=== PATIENT | female | born 1990 | race Caucasian/White ===

== ENCOUNTER 2023-08-19 09:57 | Outpatient (CLI) | payer OTHER, SELFPAY ==
[2023-08-19 13:38] LABS: Basophils Absolute Auto 0.1 K/mm3 (0.0-0.1); Basophils Percent Auto 1.1 % (0.2-1.2); Eosinophils Absolute Auto 0.1 K/mm3 (0-0.3); Eosinophils Percent Auto 2.1 % (0-4.4); Hematocrit 42.2 % (42.0-52.0); Hemoglobin 13.6 g/dL (14.0-18.0); Immature Granulocyte Absolute 0.01 K/mm3 (0.00-0.031); Immature Granulocyte Percent A 0.2 % (0-0.5); Lymphocytes Absolute Auto 1.22 K/mm3 (0.9-3.2); Lymphocytes Percent Auto 27.9 % (18.3-44.2); Mean Corpuscular HGB Conc 32.2 g/dl (32-36); Mean Corpuscular Hemoglobin 27.9 pg (26-34); Mean Corpuscular Volume 86.7 fl (80-100); Mean Platelet Volume 9.7 fl (7.4-10.4); Monocytes Absolute Auto 0.4 K/mm3 (0.1-0.6); Monocytes Percent Auto 8.4 % (2.6-8.5); Neutrophils Absolute Auto 2.6 K/mm3 (1.3-6.7); Neutrophils Percent Auto 60.3 % (45.5-73.1); Platelet Count Result 204 k/mm3 (150-375); Red Blood Count 4.87 M/mm3 (4.2-6.2); Red Cell Distribution Width 14.8 % (11.5-14.5); White Blood Count 4.4 K/mm3 (4.5-10.0)
[2023-08-19 17:18] LABS: Alanine Aminotransferase 14 U/L (6-50); Alkaline Phosphatase 56 U/L (38-126); Anion Gap 7 mmol/L (8-16); Aspartate Amino Transferase 36 U/L (17-59); Bilirubin,Total 0.7 mg/dL (0.2-1.3); Blood Urea Nitrogen 13 mg/dL (7-20); Calcium 9.2 mg/dL (8.4-10.2); Carbon Dioxide 26 mmol/L (22-30); Chloride 107 mmol/L (96-107); Cholesterol 145 mg/dL (0-200); Estimated Glomerular Filt Rate > 60; Glucose 86 mg/dL (65-110); HDL Direct 74 mg/dL; Potassium 4.2 mmol/L (3.4-5.0); Sodium 140 mmol/L (137-145); Triglycerides 75 mg/dL (<150)
[2023-08-19 17:27] LABS: LDL Cholesterol Direct 42 mg/dL
[2023-08-23 23:59] LABS: Vitamin D 1,25 (OH)2 Total 28 pg/mL (18-72); Vitamin D2 1,25 (OH)2 <8 pg/mL; Vitamin D3 1,25 (OH)2 28 pg/mL
== END 2023-08-19 09:58 | disposition home or self-care (01) ==
LOC: ANHGOSHLAB 09:59
PROVIDERS: PCP Family Medicine; Visit Provider Nurse Practitioner Family
DX: I63.9 Cerebral infarction, unspecified (principal); Z00.00 Encounter for general adult medical examination without abnormal findings; E55.9 Vitamin D deficiency, unspecified
CPT/HCPCS: 36415; 80053; 80061; 82652; 84443; 85025

== ENCOUNTER 2023-09-18 10:26 | Emergency (ER) | payer OTHER, SELFPAY ==
--- NOTE | 2023-09-18 10:31 | ED.SKABFB ---
HPI - Skin/Abscess/Foreign Bdy General Chief complaint: Skin/Abscess/Foreign Body Stated complaint: INFECTED TOENAIL Time Seen by Provider: 09/18/23 10:31 Source: patient Mode of arrival: ambulatory Limitations: no limitations History of Present Illness HPI narrative: Yuli is a 33-year-old female patient presenting to the clinic today with complaints of possible infected right great toenail. She reports history of stroke that is affected her right side. States that she has had a ingrown toenail infection few weeks ago was given doxycycline and this to cure the infection however the infection has restarted over the last few days. She reports pain to palpation over the right medial toe with redness and swelling noted Related Data Home Medications Medication Instructions Recorded Confirmed baclofen 5 mg tablet 5 mg PO TID 08/17/23 09/18/23 diazepam 10 mg tablet 10 mg PO QHS 08/17/23 08/17/23 folic acid 1 mg tablet 1 mg PO DAILY 08/17/23 09/18/23 hydroxychloroquine 100 mg tablet 100 mg PO BID 08/17/23 09/18/23 labetalol 100 mg tablet 50 mg PO Q12H 08/17/23 09/18/23 lacosamide 50 mg tablet 50 mg PO Q12H 08/17/23 08/17/23 Allergies Allergy/AdvReac Type Severity Reaction Status Date / Time No Known Allergies Allergy Verified 09/18/23 10:37 Review of Systems Review of Systems: Pertinent positives per HPI. Patient denies any fever, chills, rash, headache, visual changes, dizziness, cough, runny nose, sore throat, shortness of breath, chest pain, palpitations, nausea, vomiting, diarrhea, constipation, abdominal pain, or any urinary issues. [facility] Past Medical History Medical History History of stroke Status post stereotactic radiosurgery (~06/2023) Surgical History Surgical History H/O atrial septal defect repair (~1991) H/O carpal tunnel repair (~2010) x2 H/O hernia repair (~2020) S/P coil embolization of cerebral aneurysm (~2022) Family History Family History Father Hypertension Social History Social History Social History: Caffeine-Coffee Smoking status: Never smoker Alcohol intake: never Substance use: never Substance use type: does not use Lack of Transportation: No Lack of Food: Never True Current Housing: I Have Housing Concerned About Future Housing: No Difficulty Paying Gas/Electric Bills: No Difficulty Paying for Meds: No Currently Unemployed: No Education: Bachelor's Degree Difficulty w/ Childcare or Family Care: No Living arrangements: with family Gender identity (if verbalized by the patient): Female Agree to blood products: Yes Comments At the time of my signature, I reviewed and agree with the nursing past medical, surgical, social, and family history. There is no relevant family history pertinent to the patient complaint. Exam Narrative: General: Well-developed, well nourished, in no apparent distress Head: Normocephalic, atraumatic. Cardio: Regular rate and rhythm, s1 and s2 normal, no murmur appreciated. Resp: Clear to auscultation bilaterally, no rhonchi, rales, wheezing or rubs. Integumentary: [place], warm, and dry, intact without lesion, no rash, redness and swelling noted to the distal toe with medial right great toenail infected/ingrown toenail Course Course Emergency Course: Portions of this record may have been created with voice recognition software. Level of Care: Express Care Visit Vital Signs Vital signs: Vital signs reviewed Procedures Other Procedure Procedure 1: Other Procedure: Verbal consent obtained for right infected ingrown toenail removal. Area was cleansed with wound wash. A 27 gauge needle was then used to inject a mL of lidocaine without epi into the proximal medial and l
[2023-09-18 10:41] VITALS: BP 133/82; PULSE 75; RESP 16; TEMP 37; O2SAT 100
== END 2023-09-18 11:36 | disposition home or self-care (01) ==
PROVIDERS: Emergency Provider Nurse Practitioner Family; PCP Nurse Practitioner Family
DX: L60.0 Ingrowing nail (principal); Z86.73 Personal history of transient ischemic attack (TIA), and cerebral infarction without residual deficits
CPT/HCPCS: 11765; 99213; G0463

== ENCOUNTER 2023-11-18 10:00 | Outpatient (RCR) | payer OTHER, SELFPAY ==
--- NOTE | 2023-09-02 10:21 | PTOPEVAL1 ---
Assessment and note entered by Ryan Jones Evaluation Information Assessment Status Evaluation Diagnosis cerebral infarct Onset 02/12/23 Subjective Information Pt. reports that she suffered a stroke on 02/12/23. She was in the ICU for about 24 days. From there she was admitted to IP rehab for 3 weeks. Pt. then attended OP for about 1 week and then was switched to due to scheduling difficulties. Pt. reports that she does have hx of RA, which did cause some difficulty prior to her infarct. 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 She reports that she has returned to home schooling, but has some family help currently . She reports that she has 3 children that she does have to care for. She reports her current limitation is pain radiating down the right l.e. She states that she has no dorsiflexion in her right ankle. She has been doing estim daily to stimulate dorsiflexion. She reports that she does notice active dorsiflexion with use of the estim unit. she states that she is having complication from her toes beginning to curl in on the right foot. She is currently using an AFO to support the right ankle. She states that pain in her toes limits her ability to walk for long distances daily. Pt. reports that she attempts to complete normal household activities, but things take a longer duration since the cerebral infarct. She notices occasional loss of balance, but denies any falls. She reports that she has noticed that she fatigues easily and after a full day of activity she can feel that she is in a fog. Pt. reports that she is using a treadmill at home daily, using a recumbent bike, using a Gilles unit 2x/day to stimulate dorsiflexion for 30 minutes, stretching of the right leg and general strengthening activities at home. She reports that her goal for PT is to be able to improve her walking and have less pain with walking. Reported Pain Level Pain Score 0: Self Report Assessment PT Clinical Summary Pt. is a 33 year old female who enters the clinic post cerebral infarct affecting the right l.e. She currently presents with impaired flexibility, impaired right l.e. strength, impaired gait mechanics and impaired balance. Continued skilled PT is indicated in order to improve these areas to allow for improved effic
--- NOTE | 2023-09-02 10:28 | OPREHPOC ---
Outpatient Therapy Plan of Care This is a Multidisciplinary Plan of Care that may contain components documented by all disciplines (PT, OT, and ST.) PT Problem 1 PT Problem #1 Knowledge Deficit PT Goal 1 Goal Independent with a HEP addressing l.e. strength and mobility Target Visit 2 PT Problem 2 PT Problem #2 Impaired Balance PT Goal 1 Goal Improve her Tinetti score to 24 or greater indicating low fall risk. Target Visit 10 PT Problem 3 PT Problem #3 Impaired Gait PT Goal 1 Goal Pt. will demonstrates lesser degree of hip circumduction on the right during swing phase without verbal cuing for distance of 500'. Target Visit 10 PT Problem 4 PT Problem #4 Impaired Strength PT Goal 1 Goal Pt. will present with improved hip abduction, flexion and extension strength at the right hip to 4/5 or greater in all groups. Target Visit 10 PT Problem 5 PT Problem #5 Impaired Range of Motion PT Goal 1 Goal Pt. will present with 5 degrees passive right ankle dorsiflexion to assist with standing posture and normalizing gait mechanics. Target Visit 10
--- NOTE | 2023-09-02 11:26 | OTOPEVAL1 ---
Assessment and note entered by Kash Leyva, NISREEN/Cecy, CHT Evaluation Information 09/02/23 Diagnosis CVA Onset 02/12/23 Subjective Information Patient experienced an AVM rupture 11 days after she gave . She is s/p 3 weeks of acute care and 3 weeks of inpatient rehab. She presents today with her , Jose. They live at home with their 3 daughters. Currently family comes over Wednesday-Wednesday. She has progressed to being independent with ADLs, laundry, and cleaning. She reports difficulties cognitively with sequencing and processing to be able to do 2 tasks at once ( laundry and holding a conversation). She is not back to driving and reports not really feeling ready to drive. She is right handed and right side affected. Assessment OT Clinical Summary Patient referred to OT with dx of CVA with residual right sided deficits. She reports difficulties with right sided strength and functional coordination impacting ADL performance and childcare. Skilled OT indicated to maximize functional strength and coordination through therapeutic exercises and activities and HEP instruction and progression. Plan of Care Interventions Therapeutic Exercise,Neuro Re-education, Therapeutic Activities OT Services Indicated Yes Treatment Frequency and 2x/week for 8 visits Duration These treatments will address the objective and functional deficits as defined above. The patient will be advanced safely and appropriately in order for the patient to progress towards his/her prior level of function. Additional exercises will be introduced and as well as a comprehensive home exercise program upon discharge, if needed, ?to ensure carryover of functional gains achieved in the clinic. This treatment plan has been reviewed and agreement upon by the patient.
--- NOTE | 2023-09-02 11:27 | OPREHPOC ---
Outpatient Therapy Plan of Care This is a Multidisciplinary Plan of Care that may contain components documented by all disciplines (PT, OT, and ST.) PT Problem 1 PT Problem #1 Knowledge Deficit PT Goal 1 Goal Independent with a HEP addressing l.e. strength and mobility Target Visit 2 PT Problem 2 PT Problem #2 Impaired Balance PT Goal 1 Goal Improve her Tinetti score to 24 or greater indicating low fall risk. Target Visit 10 PT Problem 3 PT Problem #3 Impaired Gait PT Goal 1 Goal Pt. will demonstrates lesser degree of hip circumduction on the right during swing phase without verbal cuing for distance of 500'. Target Visit 10 PT Problem 4 PT Problem #4 Impaired Strength PT Goal 1 Goal Pt. will present with improved hip abduction, flexion and extension strength at the right hip to 4/5 or greater in all groups. Target Visit 10 PT Problem 5 PT Problem #5 Impaired Range of Motion PT Goal 1 Goal Pt. will present with 5 degrees passive right ankle dorsiflexion to assist with standing posture and normalizing gait mechanics. Target Visit 10 OT Problem 1 OT Problem #1 Knowledge Deficit OT Goal 1 Goal 1. Patient and/or spouse to be independent with instructed materials. Target Visit 8 OT Problem 2 OT Problem #2 Impaired Coordination OT Goal 1 Goal 1. Patient to be able to complete the 9-hole peg test with the right hand in 20 seconds or less. Target Visit 8 OT Problem 3 OT Problem #3 Impaired Strength OT Goal 1 Goal 1. Improve right shoulder and elbow gross strength to 5/5. 2. Improve right guest service team leader strength to 75 lbs. Target Visit 8
--- NOTE | 2023-09-02 15:12 | STOPEVAL1 ---
Assessment and note entered by Theresa Luna EDGE BANDING OFF BEARER Evaluation Information Assessment Status Evaluation Assessment Status Evaluation Assessment Status Evaluation Reported Pain Level Pain Score 0: Self Report Pain Score 0: Self Report Pain Score 0: Self Report Assessment ST Clinical Summary COGNITIVE EVALUATION This patient had AVM rupture, hemorraghic stroke, brain bleed on February [id number] days after the of her third child. She was admitted to [facility], then had inpatient rehab, and then in-home therapy until July while living in [place]; additionally she had radiation therapy to cauterize the last bit of bleeding in June,. The family has since returned to [place] and lives close to this rehabilitation location, 's work, and grandparents to assist with caregiving. 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 Her reports that patient has an ankle issue which affects her walking and indicates a disability but their greater concern is patient's cognitive issues. Patient reports she can start her day fresh with her family, but after dealing with the children, she feels as if she has been taking drugs all day, disconnected with (her) own thoughts and brain. Patient reports issues with losing train of thought such as forgetting why she entered a room. Additionally, they report that when cooking, she has to complete one task at a time such as retrieving a bowl, then retrieving the butter, then retrieving the eggs, but if someone were to say to her: Get one stick of butter and two eggs, she would be overwhelmed and not be able to retrieve both items in the correct amount. The patient was given portions of the Ross Information Processing Assessment (RIPA) and tasks from the Scales of Cognitive Ability for Traumatic Brain Injury (SCATBI). She performed as follows: RIPA I. Immediate Yared
--- NOTE | 2023-09-07 09:05 | OPREHPOC ---
Outpatient Therapy Plan of Care This is a Multidisciplinary Plan of Care that may contain components documented by all disciplines (PT, OT, and ST.) PT Problem 1 PT Problem #1 Knowledge Deficit PT Goal 1 Goal Independent with a HEP addressing l.e. strength and mobility Target Visit 2 PT Problem 2 PT Problem #2 Impaired Balance PT Goal 1 Goal Improve her Tinetti score to 24 or greater indicating low fall risk. Target Visit 10 PT Problem 3 PT Problem #3 Impaired Gait PT Goal 1 Goal Pt. will demonstrates lesser degree of hip circumduction on the right during swing phase without verbal cuing for distance of 500'. Target Visit 10 PT Problem 4 PT Problem #4 Impaired Strength PT Goal 1 Goal Pt. will present with improved hip abduction, flexion and extension strength at the right hip to 4/5 or greater in all groups. Target Visit 10 PT Problem 5 PT Problem #5 Impaired Range of Motion PT Goal 1 Goal Pt. will present with 5 degrees passive right ankle dorsiflexion to assist with standing posture and normalizing gait mechanics. Target Visit 10 OT Problem 1 OT Problem #1 Knowledge Deficit OT Goal 1 Goal 1. Patient and/or spouse to be independent with instructed materials. Target Visit 8 OT Problem 2 OT Problem #2 Impaired Coordination OT Goal 1 Goal 1. Patient to be able to complete the 9-hole peg test with the right hand in 20 seconds or less. Target Visit 8 OT Problem 3 OT Problem #3 Impaired Strength OT Goal 1 Goal 1. Improve right shoulder and elbow gross strength to 5/5. 2. Improve right sewing machinist strength to 75 [address] Target [address] Problem #[address] Goal 1 Goal 1. Patient will voice and demonstrate good understanding of ding memory strategies and strategies to improve focus, recall, and attention to detail in order to facilitate improved ability to complete activities of daily living.
--- NOTE | 2023-09-30 12:10 | OTOPDC ---
Assessment and note entered by Kash Leyva, NISREEN/Cecy, CHT OT Discharge Summary 09/30/23 Diagnosis CVA Onset 02/12/23 Subjective Information Patient reporting noticing improvements in shoulder flexibility and ROM. She states she continues to have difficulties with body awareness and proprioception. She has been consciously making herself use her right hand for more tasks despite it being easier for her left hand to do, like carry a cup of coffee. She reports that it takes a lot more effort to focus on using the right hand and that it's not quite automated yet . Assessment OT Clinical Summary Patient referred to OT with dx of CVA with residual right sided deficits. She presents today for re-assessment after 8 OT sessions. Today she is demonstrating improved flexibility of the right shoulder. Gross strength remained relatively unchanged, but is WFL. Fine motor coordination, as measured by the 9-hole peg test, remained unchanged, but is also WFL. Had a long discussion with the patient regarding neuroplasticity. Recommending she continue to challenge herself by using her right UE for tasks. We also discussed trying yoga to improve the mind-body connection. She verbalizes excellent understanding. Discharging today with patient independent with HEP. Plan of Care OT Services Indicated No
--- NOTE | 2023-10-01 14:43 | STOPPROG ---
Assessment and note entered by Theresa Luna, FACE MAN Assessment ST Clinical Summary TREATMENT SUMMARY AND PROGRESS NOTE The patient has been seen for a Cognitive Evaluation and then 8 treatment sessions focuding on attention to detail, recall, and memory including sequencing. Therapy tasks this past period have included recall of moderate length paragraph recall presented aloud, deductive reasoning stories with clues, functional math for time, and divergent naming. Patient reports that she has appreciated having dedicated time to address cognitive issues. She does not feel that she had been improving in a previous therapy episode when she was given homework to address independently and that was not challenging where when she attends the sessions here at this outpatient center, every day presents new challenges that she feels have benefitted her as they cause her to be both aware of her deficits and how to address improving her impairments. Two portions of the Scales of Cognitive Ability for Traumatic Brain Injury were re-administered to assess progress: Recall of 5 words in order after 30 second delay : 100% accuracy (initially had recalled all five words with two incorrectly ordered). Recall of 11 pieces of information from an informative description of a recipe: 05/05 ( initially 8/11 items). New item this month: Verbal Deductive Reasoning: Patient presented a brief story with two clues aloud; patient was asked to write down information she felt helpful in order to come to a conclusion : 0% accuracy, independently. This puzzle offered two first names, two cars, and two last name, along with two clues that should have facilitated patient associating the correct information with each woman's first name. Even with patient's written notes, which were all correct, she was unable to make the associations in order to complete the deductive reasoning puzzle. Patient also has been given functional math tasks for time and although she generally deduces the correct time, she also requires excessive time to
--- NOTE | 2023-10-01 15:07 | STOPPROG ---
Assessment and note entered by Theresa Luna, PLASTIC DESIGN APPLIER Assessment ST Clinical Summary TREATMENT SUMMARY AND PROGRESS NOTE The patient has been seen for a Cognitive Evaluation and then 8 treatment sessions focuding on attention to detail, recall, and memory including sequencing. Therapy tasks this past period have included recall of moderate length paragraph recall presented aloud, deductive reasoning stories with clues, functional math for time, and divergent naming. Patient reports that she has appreciated having dedicated time to address cognitive issues. She does not feel that she had been improving in a previous therapy episode when she was given homework to address independently and that was not challenging where when she attends the sessions here at this outpatient center, every day presents new challenges that she feels have benefitted her as they cause her to be both aware of her deficits and how to address improving her impairments. Two portions of the Scales of Cognitive Ability for Traumatic Brain Injury were re-administered to asses progress: Recall of 5 words in order after 30 second delay : 100% accuracy (initially had recalled all five words with two incorrectly ordered). Recall of 11 pieces of information from an informative description of a recipe: 05/05 ( initially 8/11 items). New item this month: Verbal Deductive Reasoning: Patient presented a brief story with two clues aloud; patient was asked to write down information she felt helpful in order to come to a conclusion : 0% accuracy, independently. This puzzle offered two first names, two cars, and two last name, along with two clues that should have facilitated patient associating the correct information with each woman's first name. Even with patient's written notes, which were all correct, she was unable to make the associations in order to complete the deductive reasoning puzzle. Patient also has been given functional math tasks for time and although she generally deduces the correct time, she also requires excessive time to
--- NOTE | 2023-10-07 13:00 | PTOPPROG ---
Assessment and note entered by Ryan Jones Evaluation Information Assessment Status Progress Diagnosis cerebral infarct Onset 02/12/23 Subjective Information Pt. reports that she notices that she is walking better. she reports that she still feels that she has to give a constant conscious effort to improve her gait mechanics. She continues to also note tightness through the right l.e. and notices difficulty with the toes curling in standing. Pt . states that she would like to continue to improve mobility around the ankle, as well as improve her ability to walk. Assessment PT Clinical Summary Pt. has attended a total of 11 treatment sessions. In this date she has demonstrated improvements in regards to gait and balance. Despite improvements deficits remain that hinder the patients performance of IADL's. She demonstrates ability to further improve gait mechanics, specifically focusing on the right l.e. stance phase mechanics. Recommend continued skilled PT to further improve balance, ROM at the right ankle and functional mobility. Plan of Care Interventions Electrical Stimulation,Gait Training,Manual Therapy,Neuro Re-education,Patient/Caregiver Educati,Therapeutic Activities,Therapeutic Exercise PT Services Indicated Yes Treatment Frequency and 2x/week x 10 visits Duration These treatments will address the objective and functional deficits as defined above. The patient will be advanced safely and appropriately in order for the patient to progress towards his/her prior level of function. Additional exercises will be introduced and as well as a comprehensive home exercise program upon discharge, if needed, ?to ensure carryover of functional gains achieved in the clinic. This treatment plan has been reviewed and agreement upon by the patient.
--- NOTE | 2023-10-14 08:13 | PCPTNOTE ---
Patient cancelled today's PT treatment session due to illness.
--- NOTE | 2023-10-14 09:55 | PCSTNOTE ---
The patient treatment was not able to be completed on due to illness; unsure why patient only scheduled one of two visits this week. Will plan to continue treatment per plan of care.
--- NOTE | 2023-10-20 12:50 | PCSTNOTE ---
The patient treatment was not able to be completed on this week due to medical issues. Will plan to continue treatment per plan of care next week.
--- NOTE | 2023-10-20 14:24 | PCPTNOTE ---
Pt cancelled due to illness.
--- NOTE | 2023-11-03 13:36 | PTOPDC ---
Assessment and note entered by Ryan Jones Evaluation Information Assessment Status Discharge - Pt Not Presen Diagnosis cerebral infarct Onset 02/12/23 Reported Pain Level Pain Score 0: Self Report Assessment PT Clinical Summary The pt. contacted the clinic on 11/01/23. She reports recently going to the doctor and some other issues were noted. She reports that her doctor requested she attend therapy at [facility]. Refer to the last daily note for pt. discharge status. Plan of Care PT Services Indicated No
--- NOTE | 2023-11-16 11:50 | STOPPROG ---
Assessment and note entered by Theresa Luna, HAND HOSE CUTTER Evaluation Information Assessment Status Progress Assessment ST Clinical Summary PROGRESS NOTE/TREATMENT SUMMARY Patient has been seen for 18 treatment sessions of Speech Therapy focusing on attention, recall, memory and currently deductive reasoning and completing functional math problems. It has been noted that patient has greater difficulty with recall of verbal information as compared to written information. Additionally, she has improved deductive reasoning skills and functional math skills when problems are in writing and she can see the information than when presented verbally. Functionally, patient reports similar issues in the home; when her and she are attempting to problem solve scheduling conflicts, if their discussion is verbal, she reports she has difficulty holding onto the information. If she has access to a calendar, she is much better able to plan. Portions of the SCATBI (Scales of Cognitive Ability for Traumatic Brain Injury) were presented today. She performed as follows: Recall of a Short Story with the cue to Remember ... (eight specific words throughout the story): Patient recalled 4/8 and offered two additional words, one was in the text, one was not. She has been consistent with recall of 4/8 items. Recall of a recipe including ingredients and advantages: 10/11 items (commensurate with last progress note but increased from 8/11 on initial evaluation). Verbal Deductive Reasoning Puzzles with opportunity to take notes on paper: 2/6 points (1/ 3 correct within 4 minutes out of 5 minutes allotted. The other two required all 5 minutes but were not correctly completed). Of concern is the amount of time required to complete tasks as patient tends to over-think or over-analyze problems which can send her down the incorrect path. For example, given a clue: Given the clues: One man bought a suit and one man bought a sweater and Thompson did not buy pants, Yuli decided that
--- NOTE | 2023-11-16 12:22 | STOPPROG ---
Assessment and note entered by Theresa Luna ENGINEER CHIEF Evaluation Information Assessment Status Progress Assessment ST Clinical Summary PROGRESS NOTE/TREATMENT SUMMARY Patient has been seen for 18 treatment sessions of Speech Therapy focusing on attention, recall, memory and currently deductive reasoning and completing functional math problems. It has been noted that patient has greater difficulty with recall of verbal information as compared to written information. Additionally, she has improved deductive reasoning skills and functional math skills when problems are in writing and she can see the information than when presented verbally. Functionally, patient reports similar issues in the home; when her and she are attempting to problem solve scheduling conflicts, if their discussion is verbal, she reports she has difficulty holding onto the information. If she has access to a calendar, she is much better able to plan. Today, the patient stated, I am better at remembering a feeling, but struggling to find the words. Portions of the SCATBI (Scales of Cognitive Ability for Traumatic Brain Injury) were presented today. She performed as follows: Recall of a Short Story with the cue to Remember... eight specific words throughout the story: Patient recalled 4/8 and offered two additional words, one was in the text, one was not. This result has been consistent. Recall of a recipe including ingredients and advantages: 10/11 items (commensurate with last progress note but increased from 8/11 on initial evaluation). Verbal Deductive Reasoning Puzzles with opportunity to take notes on paper: 2/6 points (1/ 3 correct within 4 minutes out of 5 minutes allotted. The other two required all 5 minutes but were not correctly completed). Of concern is the amount of time required to complete tasks as patient tends to over-think or over-analyze problems which can send her down the incorrect path. For example, given a clue: Given the clue
--- NOTE | 2023-11-23 11:40 | PCSTNOTE ---
Patient record is carried over from previous V# [id number] to new V# [id number].
== END 2023-11-22 10:14 | disposition home or self-care (01) ==
LOC: ANHST 10:00
PROVIDERS: PCP Family Medicine; Visit Provider Nurse Practitioner Family
DX: I63.9 Cerebral infarction, unspecified (principal)
CPT/HCPCS: 92507; 96125; 97110; 97112; 97140; 97161; 97166; 97167; 97530

== ENCOUNTER 2024-02-03 10:00 | Outpatient (RCR) | payer OTHER, SELFPAY ==
--- NOTE | 2023-11-23 11:41 | PCSTNOTE ---
Patient record is carried over from previous V# [id number] to new V# [id number].
--- NOTE | 2023-12-21 16:07 | PCSTNOTE ---
The patient treatment was not able to be completed on 12/20 due to scheduling conflict with another appointment. Will plan to continue treatment per plan of care.
--- NOTE | 2023-12-30 14:17 | STOPPROG ---
Assessment and note entered by Theresa Luna, MAIL HANDLER EQUIPMENT OPERATOR Assessment ST Clinical Summary PROGRESS NOTE Patient has been seen for ten visits since last progress note. Therapy has focused on deductive reasoning, recall of paragraph level information, sequencing [id number] short paragraph information, functional math for time with focus on passage of time, and determining if statements are true, false, or unknown given inference paragraphs. 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 Patient has exhibited improvements in all areas addressed although she continues to have difficulty sequencing moderately complex out- of-sequence stories, especially when dates/years are involved, difficulty determining if a statement is specifically stated or only assumed in a paragraph story, completing math tasks involving forward and backward math for time that passes over 12:00, recall of general information in a moderate level paragraph story, and completing deductive reasoning tasks. Patient performed as follows on portions of the Scales of Cognitive Ability for Traumatic Brain Injury (SCATBI): --Recall of specific words in paragraph story: 6/8 items (increased from 4/8 items on the last two reassessments). Also today, she stated the words in order of presentation rather than stated randomly as she attempted to recall the words on previous assessments. --Deductive Reasoning Puzzles presented verbally: 2/3 puzzles completed correctly (4/6 points); on previous assessments, patient completed 1/3 puzzles correctly (2/6 points). Additionally, on previous attempts, she ranged from 5-8 minutes for completing these tasks (at 8 minutes, gave up attempting the third, most difficult puzzle). Today patient ranged from 2.40-3.0 minutes on the two successful puzzles but went up to 9 minutes before admitting defeat with the third, complex,
--- NOTE | 2024-01-04 11:03 | PCSTNOTE ---
The patient treatment was not able to be completed on 01/03 due to scheduling conflict. Will plan to continue treatment per plan of care.
--- NOTE | 2024-01-25 10:23 | PCSTNOTE ---
Patient was scheduled for a second to last visit prior to re-evaluation today. She reported due to holiday, she would be unable to come Wednesday and Wednesday (and is closed for 26 of January), however she had forgotten that she had stated she could come today and did not show for appointment. Therapist called patient and that is when patient stated she thought we had cancelled all visits this week although we specifically talked last about her coming today. Will move this visit and the next visit (re-evaluation) to Wednesday and next week.
--- NOTE | 2024-02-07 14:49 | STOPDC ---
Assessment and note entered by Theresa Luna, MAGNETIC RESONANCE IMAGING COORDINATOR Assessment ST Clinical Summary TREATMENT AND DISCHARGE SUMMARY Patient has been seen for a total of 40 visits during this year. See previous progress notes for details. Therapy for the past nine visits has been focusing on improving the patient's attention to detail, deductive reasoning, and functional math by presenting patient with written short stories involving information presented [id number] with extraneous comments thrown in to distract. She was then given questions involving placing at least three pieces of information up to 7 pieces of information into correct order based on the clues, with additional questions involving functional math for time that begins prior to noon and ends after noon, and with occasional questions regarding inferences ( Based on the clues, can we know what time I clocked in? ). Patient exhibited fair to good responses, occasionally placing all of the events into order with 100% accuracy given an extended period of time. She also, given time to think about it and review the written story, responded well to inference questions although initially her impulsive responses would be incorrect; this exhibits an increase level of maturity when it comes to responding to inference questions. She still required excessive amount of time for functional math problems as she frequently responded with an answer that was one hour off, either direction but when told to re- think it and given extra time, she was able to self-correct. On last day of treatment, portions of the Scales of Cognitive Ability for TBI (SCATBI) were re- administered. She exhibited the same response this session as she had the last re-evaluation for recall of specific information given a simple recipe, with extraneous wording, and given three deductive reasoning puzzles verbally but with allowance to write down the information for her to review. Additionally, during the treatment session, therapist offered patient two deductive reasoning puzzles verbally that had presented to her in writing several sessions ago with the allowance
== END 2024-02-08 14:05 | disposition home or self-care (01) ==
LOC: ANHST 10:00
PROVIDERS: PCP Nurse Practitioner Family; Visit Provider Nurse Practitioner Family
DX: I63.9 Cerebral infarction, unspecified (principal)
CPT/HCPCS: 92507

== ENCOUNTER 2024-07-04 12:44 | Emergency (ER) | payer OTHER, SELFPAY ==
[2024-07-04] VITALS (73 sets, daily range): BP systolic 91–130; BP diastolic 54–99; PULSE 61–107; RESP 12–25; O2SAT 97–100
--- NOTE | ~2024-07-04 | CT_ITS ---
EXAMINATION: CTA BRAIN/CAROTID DATE: 07/04/2024 13:28 INDICATION: History of arteriovenous malformation with lead positioning procedure. TECHNIQUE: Computed tomographic angiography (CTA) of the head and neck was performed with 100 mL Omni paque-350 intravenous contrast. Multiplanar reconstructions and maximum intensity projection 3D-recon structions of the carotid arteries and of the intracranial arteries were created by the technologist on a separate workstation. Precontrast CT of the head was also obtained. Automated exposure control and iterative reconstruction technique were employed.The dose-length product was 1534.90 mGy-cm. COMPARISON: None. FINDINGS: Carotid arteries: Thoracic aorta the great vessels arising from the arch are normal in caliber with no atherosclerotic plaque or dissection. Left vertebral artery is mildly dominant with no evident atherosclerotic plaque along the bilateral vertebral arteries. There is no evident atherosclerotic plaque with 0% stenosis of the right and left carotid bulbs relative to normal distal artery lumen diameter (NASCET criteria) . Visualized upper lungs are clear. Cervical soft tissues are unremarkable. Likely positional straigh tening of the normal cervical lordosis. Head: There is a small to moderate-sized region of encephalomalacia at the left parietal lobe with multiple small metallic coils consistent with likely prior embolization of a reported arteriovenous malformat ion. No acute intracranial hemorrhage, acute infarction or abnormal extra axial fluid collection. Hugh tricles are normal and symmetric. No mass/mass effect. No abnormally enhancing brain lesions on the p ostcontrast imaging. The orbits, paranasal sinuses and mastoid air cells are normal. Intracranial arteries Left vertebral artery is mildly dominant. There is no hemodynamically significant stenosis in the gema tebral, basilar and internal carotid arteries. There are no aneurysms identified. Both A1 and P1 seg ments are patent. There is also a patent anterior communicating artery. Cerebral arterial arborizatio n appears symmetric. IMPRESSION: 1. No evident atherosclerotic plaque with 0% stenosis of the right and left carotid bulbs relative to normal distal artery lumen diameter (NASCET criteria). 2. . Small to moderate-sized region of encephalomalacia in the left parietal lobe secondary to emboli zation of a reported arteriovenous malformation. Otherwise unremarkable brain with no acute intracran ial process. 3. Unremarkable cerebral CT angiogram with no evident thrombosis, hematoma or significant stenosis or aneurysm. Reviewed, dictated and finalized at location A. E OPERATOR IMPRESSION: 1. No evident atherosclerotic plaque with 0% stenosis of the right and left car otid bulbs relative to normal distal artery lumen diameter (NASCET criteria). 2. . Small to moderate-sized region of encephalomalacia in the left parietal lo be secondary to embolization of a reported arteriovenous malformation. Otherwis e unremarkable brain with no acute intracranial process. 3. Unremarkable cerebral CT angiogram with no evident thrombosis, hematoma or s ignificant stenosis or aneurysm.
--- NOTE | ~2024-07-04 | XR_ITS ---
EXAMINATION: XR chest 1V 07/04/2024 13:32 INDICATION: Seizure PROCEDURE: AP view of the chest COMPARISON: No prior studies for comparison. FINDINGS: The lungs are clear. The cardiomediastinal silhouette is within normal limits. There are no pleural effusions. There is no pneumothorax suspected. There are median sternotomy wires. IMPRESSION: 1: NO ACUTE CARDIOPULMONARY DISEASE. Reviewed, dictated and finalized at location B. ETING REPORTING ANALYST
--- NOTE | 2024-07-04 12:42 | ECG_ITS ---
Test Date: 2024-07-04 13:09:43 Measurements Intervals [place] Rate: 125 P: 39 [place]: 135 QRS: 68 QRSD: 102 T: 41 QT: 386 QTc: 557 Interpretive Statements SINUS TACHYCARDIA POSSIBLE RIGHT VENTRICULAR CONDUCTION DELAY [RSR (QR) IN V1/V2] NONSPECIFIC T-WAVE ABNORMALITY ABNORMAL RHYTHM ECG No previous ECG available for comparison Electronically Signed On 07-05-2024 11:42:10 ENTERTAINMENT LAWYER by Brunilda Jimenez
[2024-07-04] MEDS: SODIUM CHLORIDE 0.9% IV 1,000 ML 999 ML IV CONT ×2 (12:57→14:51)
--- NOTE | 2024-07-04 13:00 | ED_ITS ---
HPI - Seizure General Chief Complaint: Seizure Stated Complaint: Seizure History of Present Illness HPI Narrative: 34-year-old female with a past medical history including hemorrhagic stroke status post bleeding AV malformation. Patient has a history of right-sided deficits from the stroke and this was treated last year in [place] as well as at [facility]. She presents today from EMS for a witnessed seizure that required 5 mg of IV push Versed to abort. EMS was initially called by family members for altered mental status at home and they witnessed a generalized tonic-clonic seizure. According to family members that provide report EMS patient has otherwise been in her normal state of health recently. Collateral formation is limited at this time his family is not present to the emergency department and patient is postictal and after getting Versed is somewhat somnolent but able to protect her airway and breathing spontaneously. She does have a brace on her right lower extremity for ambulation assistance given her right-sided deficits at baseline from her stroke. Related Data Home Medications ?Medication ?Instructions ?Recorded ?Confirmed ?Last Taken ?Type hydroxychloroquine 100 mg tablet 100 mg PO BID 08/17/23 09/18/23 Unknown History labetalol 100 mg tablet 50 mg PO Q12H 08/17/23 09/18/23 Unknown History Allergies Allergy/AdvReac Type Severity Reaction Status Date / Time No Known Allergies Allergy Verified 09/18/23 10:37 Review of Systems 2 Review of Systems: Unable to obtain secondary to medical condition and mental status PMFSH Past Medical History Medical History History of stroke Status post stereotactic radiosurgery (~06/2023) Surgical History Surgical History S/P coil embolization of cerebral aneurysm (~2022) H/O hernia repair (~2020) H/O carpal tunnel repair (~2010) x2 H/O atrial septal defect repair (~1991) Family History Family History Father Hypertension Social History Social History Social History: Caffeine-Coffee Smoking status: Never smoker Alcohol intake: never Substance use: never Substance use type: does not use Lack of Transportation: No Lack of Food: Never True Current Housing: I Have Housing Concerned About Future Housing: No Difficulty Paying Gas/Electric Bills: No Difficulty Paying for Meds: No Currently Unemployed: No Education: Bachelor's Degree Difficulty w/ Childcare or Family Care: No Living arrangements: with family Gender identity (if verbalized by the patient): Female Agree to blood products: Yes Exam 2 Narrative: GENERAL: Postictal, moving her left-sided extremities more than the right, protecting airway HEAD: [Normocephalic, atraumatic.] EYES: [PERRLA and EOMI.] ENT: Nares clear, no rhinorrhea or epistaxis. Mucous membranes moist. NECK: Supple. CHEST: [Clear to auscultation. No respiratory distress.] HEART: [Regular rate and rhythm]. No murmur heard. [Normal peripheral pulses.] ABDOMEN: [Soft, nondistended], [nontender], [No rigidity or guarding] EXTREMITIES: Normal range of motion. [No edema.] SKIN: Warm, dry, no rash. NEURO: Postictal, not presently oriented but wakes up to voice and tactile stimuli. Moves her left upper extremities more than the right but she has a history of right-sided quinten deficits. PSYCH: Unable to assess secondary to medical condition Course Vital Signs Vital signs: Vital Signs Pulse Rate 107 H 07/04/24 12:44 Respiratory Rate 25 H 07/04/24 12:44 Blood Pressure 127/99 H 07/04/24 12:44 Pulse Oximetry 99 07/04/24 12:44 Pulse Rate 67 07/04/24 22:20 Respiratory Rate 21 H 07/04/24 22:20 Blood Pressure 105/57 L 07/04/24 22:16 Pulse Oximetry 99 07/04/24 22:20 Oxygen Delivery Room Air 07/04/24 12:45 MDM - Seizure MDM Narrative Medical decision making narrative: This is a 34-year-old female with a complex medical history including recent AV malformation with hemorrhagic stroke over a year prior treated with coiling procedure and follows at [facility]. She also has a history of eclampsia/preeclampsia but this was over a year and a half ago and prior to her brain hemorrhage. She still takes labetalol but according to family members has not been taking her lacosamide for the last 3 months. She had a witnessed generalized tonic clonic seizure today by EMS and they provider 5 mg of IV push Versed which did abort the seizure activity. Presently patient is postictal but arousable to voice and tactile stimuli. She moves her left side extremities more than the right but this is also somewhat at her baseline functionality from her right-sided deficits from the stroke. Vital signs show blood pressure 127/99 and slightly tachycardic or L5 with slight tachypnea 25 but she is protecting her airway and not needing any kind of respiratory assistance at this time. 99% saturation on room. Considerations presently are for rebleeding, new hemorrhagic stroke, AV formation recurrence or complications of the coiling procedure. Unknown if she is currently but given or eclampsia history that is also in the differential if she is. Toxic or metabolic encephalopathy also possible. A broad workup was ordered including CT head, CT angiography of the head neck, chest x-ray, EKG, toxicological panel, urine drug screen, urine test. She is provided L normal saline and loaded with Keppra. Patient's family later presents to the emergency department informed me that patient has not been taking her lacosamide for last 3 months secondary to depression. Previous also on Keppra and labetalol for eclampsia but her last was over 18 months ago. Workup reveals no leukocytosis or anemia. Normal platelets. Coagulation studies within acceptable limits. Electrolyte panels initially showed an anion gap elevated acidosis 22 and a bicarb of 9 with a lactic acid of 13 likely secondary to her ongoing seizure activity. Potassium slightly low 3.2 but could be secondary to the acidosis. LFTs are normal. TSH normal. Negative test serum. Urinalysis with some ketones and protein but no signs of infection. Urine drug screen positive for benzos but otherwise negative. Keppra level pending but is send out. Tylenol salicylates and alcohol level negative. Chest x-rays independent reviewed by myself and also interpreted by radiology. Overall clear lungs, normal cardiopulmonary silhouette, no acute process. CT angiography was ordered and shows no evident atherosclerotic plaques, no stenosis of the right or left carotid bulbs. Small to moderate region of encephalomalacia in the left parietal lobe secondary to the embolization and reported previous AVM otherwise unremarkable with no acute process. No evidence of thrombosis, hematoma or significant stenosis or aneurysm. Patient was re-evaluated frequently and had improvement in her vitals. No longer tachycardic, blood pressure improved. Still saturating 100% on room air. Patient was significantly improving since her initial presentation and was still having a postictal phase and some confusion but was able answer questions more appropriately and did not recall the events of what happened today. She did admit to me that she has been taken off her lacosamide as she was seizure- free for a prolonged period of time. No recent visits to her neurologist. I informed the patient of the workup here in the emergency department and given her complex medical history and breakthrough seizure today she does require admission for an observation at minimum which the patient and family were agreeable with and felt very uncomfortable with discharge even with resolution and improvement. I spoke to the [facility] transfer center and spoke to the on-call neurologist Dr. Diamond marquez at [facility]. They informed me that given patient's improvements and her laboratory assessment and imaging studies being stable that she does not require and her or emergent transportation or transfer and that they are capacity presently with no availability of a bed on a prolonged wait list even if that was other option. I relayed this information to the family and patient, patient still not fully back to baseline mentation and would be inappropriate for discharge. She was observed here for several hours and a repeat set of laboratory studies were obtained showing improvement and resolution of her anion gap acidosis and lactate also resolved. Patient did start developing headache and was given some medications for this both IV and p.o. with improvement. I reahed out to the [facility] transfer center and was informed that they will attempt to get her to a hospital medical admission for observation over at [facility] with the least wait list. Spoke to Dr. Hernandez who accepted the patient pending bed availability to their neuro service at [facility]. I relayed this information to the family and they were agreeable to wait for transfer. I did also run this by the mid-level providers covering the hospitalist service at the hospital here and they were recommending transfer rather than admitting here for an observation based on her complex history and limited capabilities here. Repeat evaluation frequently here during my shift and after approximately 9 hours here in the emergency department I also reached out to the supervisor special services covering the hospitalist service and attempted to admit the patient to observation here with neurology consult while pending the transfer. Patient was declined for admission here at this time with recommendations to reach out once again in the morning and to maintain her status here in the emergency department awaiting transfer. Relayed this information back to the family members who agreed to wait and observe. Patient is still doing well on my repeat evaluations and had improvement in her headache. Vitals remained stable, maintained being on continuous oximetry and cardiac monitoring telemetry without any recurrence of seizure. Endorsed to oncoming ED physician at end of shift, pending transfer. RADHAMESALA paperwork filled out. Medical Records Attestation: I reviewed the patient's medical records. Lab Data Attestation: I reviewed the patient's lab results. 07/04/24 12:58 07/04/24 15:57 Labs: Lab Results 07/04/24 07/04/24 07/04/24 Range/Units 12:57 12:58 13:05 WBC 7.7 (4.5-10.0) K/mm3 RBC 5.22 (4.2-5.4) M/mm3 Hgb 15.2 H (12.0-15.0) g/dL Hct 47.0 (37.0-47.0) % MCV 90.0 (80-100) fl MCH 29.1 (26-34) pg MCHC 32.3 (32-36) g/dl RDW 12.2 (11.5-14.5) % Plt Count 257 (150-375) k/mm3 MPV 8.8 (7.4-10.4) fl Immature Gran % (Auto) 0.3 (0-0.5) % Neut % (Auto) 56.6 (45.5-73.1) % Lymph % (Auto) 34.6 (18.3-44.2) % Martin % (Auto) 6.8 (2.6-8.5) % Eos % (Auto) 0.9 (0-4.4) % Baso % (Auto) 0.8 (0.2-1.2) % Lymph # (Auto) 2.66 (0.9-3.2) K/mm3 Martin # (Auto) 0.5 (0.1-0.6) K/mm3 Eos # (Auto) 0.1 (0-0.3) K/mm3 Baso # (Auto) 0.1 (0.0-0.1) K/mm3 Abs Immat Gran (auto) 0.02 (0.00-0.031) K/mm3 Absolute Neuts (auto) 4.4 (1.3-6.7) K/mm3 Absolute Nucleated RBC 0.000 (0.0-0.012) K/mm3 Nucleated RBC % 0.0 (0.0-0.2) % PT 14.8 H (11.1-14.7) Seconds INR 1.1 APTT 25.7 (22.3-36.8) Seconds Sodium 139 (137-145) mmol/L Potassium 3.2 L (3.4-5.0) mmol/L Chloride 108 H (98-107) mmol/L Carbon Dioxide 9 L (22-30) mmol/L Anion Gap 22 H (4-12) mmol/L BUN 9 (7-17) mg/dL Creatinine 0.60 L (0.7-1.0) mg/dL Estim Creat Clear Calc 105 ml/min Estimated GFR > 60 (59 - ) Glucose 130 H (65-110) mg/dL POC Capillary Glucose 115 H (65-105) mg/dl Lactic Acid 13.0 H* (0.7-2.0) mmol/L Calcium 8.9 (8.4-10.2) mg/dL Total Bilirubin 0.9 (0.2-1.3) mg/dL AST 31 (14-36) U/L ALT 20 (6-35) U/L Alkaline Phosphatase 59 (38-126) U/L Total Protein 8.0 (6.3-8.2) g/dL Albumin 4.9 (3.5-5.1) g/dL TSH 4.400 (0.465-4.680) uIU/mL Serum HCG, Qual Negative Urine Color (Yellow) Urine Appearance (Clear) Urine pH (5.0-9.0) Ur Specific [place] (1.001-1.035) Urine Protein (Negative) mg/dL Urine Glucose (UA) (Negative) mg/dL Urine Ketones (Negative) mg/dL Ur Blood (Man) (Negative) Urine Nitrate (Negative) Urine Bilirubin (Negative) Urine Urobilinogen (<2.0) mg/dL Leukocyte Esterase Rfl (Negative) KING/UL Urine RBC (0-2) /hpf Urine WBC (0-3) /hpf Ur Squamous Epith Cells (Few) /hpf Urine Bacteria /hpf Urine Casts Salicylates < 1.0 L (2-20) mg/dL Urine Opiates Screen (Negative) Urine Methadone Screen (Negative) Acetaminophen < 10 L (10-30) ug/mL Ur Barbiturates Screen (Negative) Levetiracetam Pending Ur Phencyclidine Scrn (Negative) Ur Amphetamine Screen (Negative) U Benzodiazepines Scrn (Negative) Urine Cocaine Screen (Negative) U Cannabinoids Screen (Negative) Ethyl Alcohol < 10 (<10) mg/dL 07/04/24 07/04/24 Range/Units 14:02 15:57 WBC (4.5-10.0) K/mm3 RBC (4.2-5.4) M/mm3 Hgb (12.0-15.0) g/dL Hct (37.0-47.0) % MCV (80-100) fl MCH (26-34) pg MCHC (32-36) g/dl RDW (11.5-14.5) % Plt Count (150-375) k/mm3 MPV (7.4-10.4) fl Immature Gran % (Auto) (0-0.5) % Neut % (Auto) (45.5-73.1) % Lymph % (Auto) (18.3-44.2) % Martin % (Auto) (2.6-8.5) % Eos % (Auto) (0-4.4) % Baso % (Auto) (0.2-1.2) % Lymph # (Auto) (0.9-3.2) K/mm3 Martin # (Auto) (0.1-0.6) K/mm3 Eos # (Auto) (0-0.3) K/mm3 Baso # (Auto) (0.0-0.1) K/mm3 Abs Immat Gran (auto) (0.00-0.031) K/mm3 Absolute Neuts (auto) (1.3-6.7) K/mm3 Absolute Nucleated RBC (0.0-0.012) K/mm3 Nucleated RBC % (0.0-0.2) % PT (11.1-14.7) Seconds INR APTT (22.3-36.8) Seconds Sodium 137 (137-145) mmol/L Potassium 3.8 (3.4-5.0) mmol/L Chloride 112 H (98-107) mmol/L Carbon Dioxide 19 L (22-30) mmol/L Anion Gap 6 (4-12) mmol/L BUN 8 (7-17) mg/dL Creatinine 0.50 L (0.7-1.0) mg/dL Estim Creat Clear Calc 124 ml/min Estimated GFR > 60 (59 - ) Glucose 74 (65-110) mg/dL POC Capillary Glucose (65-105) mg/dl Lactic Acid 1.9 (0.7-2.0) mmol/L Calcium 7.6 L (8.4-10.2) mg/dL Total Bilirubin (0.2-1.3) mg/dL AST (14-36) U/L ALT (6-35) U/L Alkaline Phosphatase (38-126) U/L Total Protein (6.3-8.2) g/dL Albumin (3.5-5.1) g/dL TSH (0.465-4.680) uIU/mL Serum HCG, Qual Urine Color Yellow (Yellow) Urine Appearance Clear (Clear) Urine pH 5.0 (5.0-9.0) Ur Specific [place] 1.023 (1.001-1.035) Urine Protein 2+ H (Negative) mg/dL Urine Glucose (UA) Negative (Negative) mg/dL Urine Ketones Trace H (Negative) mg/dL Ur Blood (Man) Trace (Negative) Urine Nitrate Negative (Negative) Urine Bilirubin Negative (Negative) Urine Urobilinogen 0.2 (<2.0) mg/dL Leukocyte Esterase Rfl Negative (Negative) KING/UL Urine RBC 0-2 (0-2) /hpf Urine WBC 0-5 (0-3) /hpf Ur Squamous Epith Cells None seen (Few) /hpf Urine Bacteria None seen /hpf Urine Casts 0-2 Salicylates (2-20) mg/dL Urine Opiates Screen Negative (Negative) Urine Methadone Screen Negative (Negative) Acetaminophen (10-30) ug/mL Ur Barbiturates Screen Negative (Negative) Levetiracetam Ur Phencyclidine Scrn Negative (Negative) Ur Amphetamine Screen Negative (Negative) U Benzodiazepines Scrn Positive A (Negative) Urine Cocaine Screen Negative (Negative) U Cannabinoids Screen Negative (Negative) Ethyl Alcohol (<10) mg/dL Imaging Data Attestation: I personally reviewed and interpreted this imaging study as follows: My impression: Impressions Chest X-Ray 07/04/24 13:36 IMPRESSION: 1: NO ACUTE CARDIOPULMONARY DISEASE. Head/Neck CTA 07/04/24 13:36 IMPRESSION: 1. No evident atherosclerotic plaque with 0% stenosis of the right and left carotid bulbs relative to normal distal artery lumen diameter (NASCET criteria). 2. . Small to moderate-sized region of encephalomalacia in the left parietal lobe secondary to embolization of a reported arteriovenous malformation. Otherwise unremarkable brain with no acute intracranial process. 3. Unremarkable cerebral CT angiogram with no evident thrombosis, hematoma or significant stenosis or aneurysm. Critical Care Time Critical Care Time Critical Care Time: Yes Total Critical Care Time: 75 Discharge Plan Discharge Clinical Impression: Breakthrough seizure, AVM (arteriovenous malformation) brain, S/P coil embolization of cerebral aneurysm Patient Disposition: Acute Care Hospital Condition: Guarded Prognosis Patient Language: Ghanaian Prescriptions: No Action doxycycline hyclate 100 mg capsule 100 mg PO BID 7 Days Qty: 14 0RF hydroxychloroquine 100 mg tablet 100 mg PO BID labetalol 100 mg tablet 50 mg PO Q12H folic acid 1 mg tablet 1 mg PO DAILY Qty: 90 2RF baclofen 5 mg tablet 5 mg PO DIRECTED Qty: 450 0RF Rx Instructions: 1 in AM, 4 in PM Follow-up/Referrals: Eduard,Verónica Weinstein APRN [Primary Care Provider] - Time of Disposition: 22:56
[2024-07-04 13:07] LABS: Basophils Absolute Auto 0.1 K/mm3 (0.0-0.1); Basophils Percent Auto 0.8 % (0.2-1.2); Eosinophils Absolute Auto 0.1 K/mm3 (0-0.3); Eosinophils Percent Auto 0.9 % (0-4.4); Hemoglobin 15.2 g/dL (12.0-15.0); Immature Granulocyte Absolute 0.02 K/mm3 (0.00-0.031); Immature Granulocyte Percent A 0.3 % (0-0.5); Lymphocytes Absolute Auto 2.66 K/mm3 (0.9-3.2); Lymphocytes Percent Auto 34.6 % (18.3-44.2); Mean Corpuscular HGB Conc 32.3 g/dl (32-36); Mean Corpuscular Hemoglobin 29.1 pg (26-34); Mean Platelet Volume 8.8 fl (7.4-10.4); Monocytes Absolute Auto 0.5 K/mm3 (0.1-0.6); Monocytes Percent Auto 6.8 % (2.6-8.5); Neutrophils Absolute Auto 4.4 K/mm3 (1.3-6.7); Neutrophils Percent Auto 56.6 % (45.5-73.1); Platelet Count Result 257 k/mm3 (150-375); Red Blood Count 5.22 M/mm3 (4.2-5.4); Red Cell Distribution Width 12.2 % (11.5-14.5); White Blood Count 7.7 K/mm3 (4.5-10.0)
[2024-07-04 13:17] LABS: Alanine Aminotransferase 20 U/L (6-35); Albumin Level 4.9 g/dL (3.5-5.1); Alkaline Phosphatase 59 U/L (38-126); Anion Gap 22 mmol/L (4-12); Aspartate Amino Transferase 31 U/L (14-36); Bilirubin,Total 0.9 mg/dL (0.2-1.3); Blood Urea Nitrogen 9 mg/dL (7-17); Calcium 8.9 mg/dL (8.4-10.2); Carbon Dioxide 9 mmol/L (22-30); Chloride 108 mmol/L (98-107); Estimated CRCL calculation 105 ml/min; Estimated Glomerular Filt Rate > 60; Glucose 130 mg/dL (65-110); Potassium 3.2 mmol/L (3.4-5.0); Sodium 139 mmol/L (137-145)
[2024-07-04 13:20] LABS: INR 1.1; Partial Thromboplastin Time 25.7 Seconds (22.3-36.8); Prothrombin Time 14.8 Seconds (11.1-14.7)
[2024-07-04 13:21] LABS: Glucose Point of Care 115 mg/dl (65-105)
[2024-07-04] MEDS: levETIRAcetam 1500MG/NACL100ML 1,500 MG/100 ML BAG 400 MG IVPB (13:37)
[2024-07-04 14:14] LABS: Acetaminophen < 10 ug/mL (10-30); Ethanol < 10 mg/dL (<10); Salicylate < 1.0 mg/dL (2-20)
[2024-07-04 14:18] LABS: Add Urine Microscopic? YES; Appearance Urine Clear (Clear); Bacteria Urine None Seen /hpf; Bilirubin Urine Negative (Negative); Blood Urine Trace (Negative); Color Urine Yellow (Yellow); Glucose Urine UA Negative (Negative); Ketones Urine Trace mg/dL (Negative); Leukocyte Esterase Ur Negative LEU/UL (Negative); Nitrate Urine Negative (Negative); Non Pathogenic Casts 0-2; Protein Urine 2+ mg/dL (Negative); RBC Urine 0-2 /hpf (0-2); Specific Grav Ur 1.023 (1.001-1.035); Squamous Epithelial Cell Urine None Seen /hpf (Few); Urobilinogen Urine 0.2 mg/dL (<2.0); WBC Urine 0-5 /hpf (0-3)
[2024-07-04 14:19] LABS: SPREG INTERNAL CONTROL Positive; Serum Qual hCG Negative
[2024-07-04 14:27] LABS: Amphetamine Screen Urine Negative (Negative); Barbiturate Screen Urine Negative (Negative); Benzodiazepines Screen Urine Positive (Negative); Cannabinoid Screen Urine Negative (Negative); Cocaine Screen Urine Negative (Negative); Methadone Screen Urine Negative (Negative); Opiate Screen Urine Negative (Negative); Phencyclidine Screen Urine Negative (Negative)
[2024-07-04] MEDS: MAGNESIUM SULF 2 GM/WATER 50ML 2 GM/50 ML BAG IVPB (14:51)
[2024-07-04] MEDS: diphenhydrAMINE HCl INJ 50 MG/ML VIAL 25 MG IV PUSH (14:51)
[2024-07-04] MEDS: PROCHLORPERAZINE EDISYLATE 10 MG/2 ML VIAL IV PUSH (14:51)
[2024-07-04 16:04] LABS: Reflex Lactic Acid Yes or No Add Lactic
[2024-07-04 16:14] LABS: Anion Gap 6 mmol/L (4-12); Blood Urea Nitrogen 8 mg/dL (7-17); Calcium 7.6 mg/dL (8.4-10.2); Carbon Dioxide 19 mmol/L (22-30); Chloride 112 mmol/L (98-107); Estimated CRCL calculation 124 ml/min; Estimated Glomerular Filt Rate > 60; Glucose 74 mg/dL (65-110); Lactic Acid Reflex 1.9 mmol/L (0.7-2.0); Potassium 3.8 mmol/L (3.4-5.0); Sodium 137 mmol/L (137-145)
--- NOTE | 2024-07-04 17:42 | PC.NURSE ---
[facility] transfer called to get a triage report on the patient, spoke with Kylie ABARCA and answered any questions. Kylie stated that they would call when the patient has a room.
[2024-07-04] MEDS: ACETAMINOPHEN 500 MG TABLET 1000 MG PO (19:17)
--- NOTE | 2024-07-04 23:10 | PC.NURSE ---
[facility] from [facility] transport center called for patient update, no beds available at this time at [facility], will continue to call once a shift for a patient update and will call when a bed is available.
[2024-07-05] VITALS (8 sets, daily range): BP systolic 105–117; BP diastolic 58–70; PULSE 62–81; RESP 15–19; TEMP 36.6–36.7; O2SAT 98–100
--- NOTE | 2024-07-05 09:48 | PC.NURSE ---
[facility] transfer center called for update.
[2024-07-05] MEDS: LACOSAMIDE (*CRX) 50 MG TABLET 100 MG PO (13:46)
--- NOTE | 2024-07-05 14:40 | PC.NURSE ---
Cuevas catheter removed prior to discharge
[2024-07-06 11:14] LABS: Levetiracetam Keppra <2.0 mcg/mL (6.0-46.0)
== END 2024-07-05 14:06 | disposition home or self-care (01) ==
PROVIDERS: Student in an Organized Health Care Education/Training Program; Emergency Provider Emergency Medicine; PCP Nurse Practitioner Family
DX: R56.9 Unspecified convulsions (principal); I69.398 Other sequelae of cerebral infarction; Q28.2 Arteriovenous malformation of cerebral vessels
CPT/HCPCS: 36415; 70496; 70498; 71045; 80048; 80053; 80143; 80177; 80179; 80307; 81001; 82077; 82948; 83605; 84443; 84703; 85025; 85610; 85730; 93005; 96365; 96366; 96375; 99284; A9270; J0780; J1200; J1953; J3475; J7030; Q9967

== ENCOUNTER 2024-08-12 13:26 | Emergency (ER) | payer OTHER, SELFPAY ==
--- NOTE | ~2024-08-12 | CT_ITS ---
EXAMINATION: CT brain wo con DATE: 08/12/2024 15:08 INDICATION: seizure, hx AVM . TECHNIQUE: Computed tomography (CT) of the head was performed without intravenous contrast. The mA wa s adjusted according to patient size. Iterative reconstruction technique was employed. The dose-lengt h product was 605.33 mGy-cm. COMPARISON: 07/04/2024. FINDINGS: No acute intracranial hemorrhage or extra-axial fluid collection. No hydrocephalus, mass, or herniation. No acute ischemic infarct. Unremarkable dural venous sinus attenuation. No acute osseous abnormality. The aerated spaces are clear. Left parietal encephalomalacia and embolization coils. IMPRESSION: No acute intracranial process. Reviewed, dictated and finalized at location [facility]. [facility]
[2024-08-12 13:20] VITALS: BP 139/79; PULSE 83; RESP 12; TEMP 36.9; O2SAT 100
[2024-08-12 13:25] VITALS: O2SAT 100
[2024-08-12 13:27] VITALS: O2SAT 100
--- NOTE | 2024-08-12 14:32 | ECG_ITS ---
Test Date: 2024-08-12 14:44:16 Measurements Intervals [place] Rate: 85 P: 68 [place]: 112 QRS: 73 QRSD: 102 T: 55 QT: 380 QTc: 452 Interpretive Statements SINUS RHYTHM WITH SHORT [place] INTERVAL POSSIBLE RIGHT VENTRICULAR CONDUCTION DELAY [RSR (QR) IN V1/V2] NONSPECIFIC T-WAVE ABNORMALITY Compared to ECG 07/04/2024 13:09:43 heart rate decreased T-wave abnormality still present Electronically Signed On 08-13-2024 09:57:25 ELECTRONICS WARFARE TECHNICIAN by Deven Hodge M.D.
[2024-08-12 15:04] LABS: Basophils Absolute Auto 0.1 K/mm3 (0.0-0.1); Basophils Percent Auto 0.7 % (0.2-1.2); Eosinophils Absolute Auto 0.1 K/mm3 (0-0.3); Eosinophils Percent Auto 0.7 % (0-4.4); Hematocrit 42.7 % (37.0-47.0); Hemoglobin 14.7 g/dL (12.0-15.0); Immature Granulocyte Absolute 0.02 K/mm3 (0.00-0.031); Immature Granulocyte Percent A 0.2 % (0-0.5); Lymphocytes Absolute Auto 1.66 K/mm3 (0.9-3.2); Lymphocytes Percent Auto 20.7 % (18.3-44.2); Mean Corpuscular HGB Conc 34.4 g/dl (32-36); Mean Corpuscular Volume 84.2 fl (80-100); Mean Platelet Volume 8.7 fl (7.4-10.4); Monocytes Absolute Auto 0.5 K/mm3 (0.1-0.6); Monocytes Percent Auto 5.9 % (2.6-8.5); Neutrophils Absolute Auto 5.8 K/mm3 (1.3-6.7); Neutrophils Percent Auto 71.8 % (45.5-73.1); Platelet Count Result 259 k/mm3 (150-375); Red Blood Count 5.07 M/mm3 (4.2-5.4); Red Cell Distribution Width 12.9 % (11.5-14.5)
[2024-08-12 15:13] LABS: Alanine Aminotransferase 23 U/L (6-35); Albumin Level 4.3 g/dL (3.5-5.1); Alkaline Phosphatase 68 U/L (38-126); Anion Gap 9 mmol/L (4-12); Aspartate Amino Transferase 30 U/L (14-36); Bilirubin,Total 0.6 mg/dL (0.2-1.3); Blood Urea Nitrogen 17 mg/dL (7-17); Carbon Dioxide 25 mmol/L (22-30); Chloride 105 mmol/L (98-107); Creatine Kinase 104 U/L (30-135); Estimated CRCL calculation 110 ml/min; Estimated Glomerular Filt Rate > 60; Glucose 86 mg/dL (65-110); Potassium 3.5 mmol/L (3.4-5.0); Sodium 139 mmol/L (137-145)
--- NOTE | 2024-08-12 15:13 | ED_ITS ---
HPI - Seizure General Chief Complaint: Seizure Stated Complaint: seizure Time Seen by Provider: 08/12/24 13:54 History of Present Illness HPI Narrative: Patient is a 34 year female who presents to the ER concerns of having a seizure prior to arrival. She endorses a history of an AVM and a seizure approximately 1 month ago. Patient reports this morning she told her that she felt ?weird then proceeded to have an episode of eye fluttering, slight shaking, right hand twisting, right hand numbness, and racing heart that lasted approximately 1-2 minutes. This episode was witnessed by her who called 911. Patient reports she has been on lacosamide since her seizure in June. She also reports she has a neurologist at [facility] who follows her care. Patient denies any recent signs/symptoms of infection or illness, urinary symptoms, recent fevers, headache, abnormal one-sided numbness/tingling/weakness. She denies any other medical history of relevant to this ER visit. Related Data Home Medications ?Medication ?Instructions ?Recorded ?Confirmed ?Last Taken ?Type hydroxychloroquine 100 mg tablet 100 mg PO BID 08/17/23 09/18/23 Unknown History labetalol 100 mg tablet 50 mg PO Q12H 08/17/23 09/18/23 Unknown History Allergies Allergy/AdvReac Type Severity Reaction Status Date / Time No Known Allergies Allergy Verified 08/12/24 14:43 [facility] Past Medical History Medical History History of stroke Status post stereotactic radiosurgery (~06/2023) Surgical History Surgical History S/P coil embolization of cerebral aneurysm (~2022) H/O hernia repair (~2020) H/O carpal tunnel repair (~2010) x2 H/O atrial septal defect repair (~1991) Family History Family History Father Hypertension Social History Social History Social History: Caffeine-Coffee Smoking status: Never smoker Alcohol intake: never Substance use: never Substance use type: does not use Lack of Transportation: No Lack of Food: Never True Current Housing: I Have Housing Concerned About Future Housing: No Difficulty Paying Gas/Electric Bills: No Difficulty Paying for Meds: No Currently Unemployed: No Education: Bachelor's Degree Difficulty w/ Childcare or Family Care: No Living arrangements: with family Gender identity (if verbalized by the patient): Female Agree to blood products: Yes Course Vital Signs Vital signs: Vital Signs Temperature 36.9 C 08/12/24 13:20 Pulse Rate 83 08/12/24 13:20 Respiratory Rate 12 08/12/24 13:20 Blood Pressure 139/79 08/12/24 13:20 Pulse Oximetry 100 08/12/24 13:20 Oxygen Delivery Room Air 08/12/24 13:20 Temperature 36.9 C 08/12/24 13:20 Pulse Rate 76 08/12/24 15:49 Respiratory Rate 12 08/12/24 15:49 Blood Pressure 109/80 08/12/24 15:49 Pulse Oximetry 100 08/12/24 15:49 Oxygen Delivery Room Air 08/12/24 13:27 MDM - Seizure MDM Narrative Medical decision making narrative: Patient is a 34 year female who presents to the ER concerns of having a seizure prior to arrival. She endorses a history of an AVM and a seizure approximately 1 month ago. Patient reports this morning she told her that she felt ?weird then proceeded to have an episode of eye fluttering, slight shaking, right hand twisting, right hand numbness, and racing heart that lasted approximately 1-2 minutes. This episode was witnessed by her who called 911. Patient reports she has been on lacosamide since her seizure in June. She also reports she has a neurologist at [facility] who follows her care. Patient denies any recent signs/symptoms of infection or illness, urinary symptoms, recent fevers, headache, abnormal one-sided numbness/tingling/weakness. She denies any other medical history of relevant to this ER visit. Labs Ordered: CBC, CMP, troponin, TSH, INR, PTT, CK, Covid/flu/RSV swab Imaging Ordered: CT head Results: Patient's CBC indicated no abnormalities. Her CMP indicated no abnormalities besides a creatinine of 0.6. Patient's TSH was 0.723. Her urinalysis indicated ketones of 3+, everything else was negative. Patient's COVID/Cy flu/RSV swab was negative. Diagnosis: Idiopathic seizure Consults: 1600- Call placed to [facility] to consult patient's neurologist. 0-spoke with Neurology at [facility] who advised patient call her neurologist on Wednesday to schedule follow-up. They advised patient be given Klonopin 25 mg b.i.d. next 3 days to help bridge her until she can follow-up with her neurologist. Patient Education/Shared MDM: Patient given 1 L normal saline IV bolus to help treat her dehydration. Results shared with the patient. She was advised to call her neurologist on Wednesday for follow-up. Patient verbalizes understanding of taking a prescription for Klonopin for 3 days. She was given strict return precautions. Patient and verbalized understanding and are in agreement plan for discharge. Vital signs stable at time of discharge. All questions answered. Differential Diagnosis Differential diagnosis: Likely intractable seizure disorder, focal seizure, generalized seizure and epileptic seizure Lab Data Attestation: I reviewed the patient's lab results. 08/12/24 14:58 08/12/24 14:58 Labs: Lab Results 08/12/24 08/12/24 08/12/24 Range/Units 14:45 14:58 15:40 WBC 8.0 (4.5-10.0) K/mm3 RBC 5.07 (4.2-5.4) M/mm3 Hgb 14.7 (12.0-15.0) g/dL Hct 42.7 (37.0-47.0) % MCV 84.2 (80-100) fl MCH 29.0 (26-34) pg MCHC 34.4 (32-36) g/dl RDW 12.9 (11.5-14.5) % Plt Count 259 (150-375) k/mm3 MPV 8.7 (7.4-10.4) fl Immature Gran % (Auto) 0.2 (0-0.5) % Neut % (Auto) 71.8 (45.5-73.1) % Lymph % (Auto) 20.7 (18.3-44.2) % [place] % (Auto) 5.9 (2.6-8.5) % Eos % (Auto) 0.7 (0-4.4) % Baso % (Auto) 0.7 (0.2-1.2) % Lymph # (Auto) 1.66 (0.9-3.2) K/mm3 [place] # (Auto) 0.5 (0.1-0.6) K/mm3 Eos # (Auto) 0.1 (0-0.3) K/mm3 Baso # (Auto) 0.1 (0.0-0.1) K/mm3 Abs Immat Gran (auto) 0.02 (0.00-0.031) K/mm3 Absolute Neuts (auto) 5.8 (1.3-6.7) K/mm3 Absolute Nucleated RBC 0.000 (0.0-0.012) K/mm3 Nucleated RBC % 0.0 (0.0-0.2) % PT 13.3 (11.1-14.7) Seconds INR 1.0 APTT 26.2 (22.3-36.8) Seconds Sodium 139 (137-145) mmol/L Potassium 3.5 (3.4-5.0) mmol/L Chloride 105 (98-107) mmol/L Carbon Dioxide 25 (22-30) mmol/L Anion Gap 9 (4-12) mmol/L BUN 17 (7-17) mg/dL Creatinine 0.60 L (0.7-1.0) mg/dL Estim Creat Clear Calc 110 ml/min Estimated GFR > 60 (59 - ) Glucose 86 (65-110) mg/dL Calcium 9.0 (8.4-10.2) mg/dL Total Bilirubin 0.6 (0.2-1.3) mg/dL AST 30 (14-36) U/L ALT 23 (6-35) U/L Alkaline Phosphatase 68 (38-126) U/L Total Creatine Kinase 104 (30-135) U/L Troponin I < 0.012 (0.000-0.034) ng/mL Total Protein 7.0 (6.3-8.2) g/dL Albumin 4.3 (3.5-5.1) g/dL TSH 0.723 (0.465-4.680) uIU/mL Urine Color Yellow (Yellow) Urine Appearance Clear (Clear) Urine pH 6.0 (5.0-9.0) Ur Specific [place] 1.013 (1.001-1.035) Urine Protein Negative (Negative) mg/dL Urine Glucose (UA) Negative (Negative) mg/dL Urine Ketones 3+ H (Negative) mg/dL Ur Blood (Man) Negative (Negative) Urine Nitrate Negative (Negative) Urine Bilirubin Negative (Negative) Urine Urobilinogen 0.2 (<2.0) mg/dL Leukocyte Esterase Rfl Negative (Negative) KING/UL Influenza A (RT-PCR) Negative (Negative) Influenza B (RT-PCR) Negative (Negative) RSV (RT-PCR) Negative (Negative) SARS-CoV-2 RNA (RT-PCR) Negative (Negative) Imaging Data Attestation: I personally reviewed and interpreted this imaging study as follows: Radiologist's impression: Impressions Head CT 08/12/24 15:12 IMPRESSION: No acute intracranial process. Discharge Plan Discharge Patient Language: Liberian Prescriptions: No Action doxycycline hyclate 100 mg capsule 100 mg PO BID 7 Days Qty: 14 0RF hydroxychloroquine 100 mg tablet 100 mg PO BID labetalol 100 mg tablet 50 mg PO Q12H lacosamide 100 mg tablet 100 mg PO Q12H Qty: 30 0RF folic acid 1 mg tablet 1 mg PO DAILY Qty: 90 2RF baclofen 5 mg tablet 5 mg PO DIRECTED Qty: 450 0RF Rx Instructions: 1 in AM, 4 in PM Follow-up/Referrals: PHYSICIAN,REGISTERED TRAVEL NURSE [Primary Care Provider] -
[2024-08-12 15:17] LABS: Partial Thromboplastin Time 26.2 Seconds (22.3-36.8); Prothrombin Time 13.3 Seconds (11.1-14.7)
[2024-08-12 15:25] LABS: Influenza A QL RT-PCR Negative (Negative); Influenza B QL RT-PCR Negative (Negative); RSV RNA, RT-PCR Negative (Negative); SARS-CoV-2 RNA PCR Negative (Negative)
[2024-08-12 15:25] LABS: Troponin I < 0.012 ng/mL (0.000-0.034)
[2024-08-12 15:44] LABS: Thyroid Stimulating Hormone 0.723 uIU/mL (0.465-4.680)
[2024-08-12] MEDS: SODIUM CHLORIDE 0.9% IV 1,000 ML 999 ML IV CONT (15:48)
[2024-08-12 15:49] VITALS: BP 109/80; PULSE 76; RESP 12; O2SAT 100
[2024-08-12 16:00] LABS: Add Urine Microscopic? NO; Appearance Urine Clear (Clear); Bilirubin Urine Negative (Negative); Blood Urine Negative (Negative); Color Urine Yellow (Yellow); Glucose Urine UA Negative (Negative); Ketones Urine 3+ mg/dL (Negative); Leukocyte Esterase Ur Negative LEU/UL (Negative); Nitrate Urine Negative (Negative); Protein Urine Negative (Negative); Specific Grav Ur 1.013 (1.001-1.035); Urobilinogen Urine 0.2 mg/dL (<2.0)
--- NOTE | 2024-08-12 17:31 | PC.NURSE ---
Provider aware pt only received 500mL of IV fluids
[2024-08-12 17:32] VITALS: BP 120/85; PULSE 66; RESP 17; TEMP 37.1; O2SAT 100
== END 2024-08-12 17:33 | disposition home or self-care (01) ==
PROVIDERS: Emergency Provider Registered Nurse
DX: G40.909 Epilepsy, unspecified, not intractable, without status epilepticus (principal); Z20.822 Contact with and (suspected) exposure to COVID-19; Z86.73 Personal history of transient ischemic attack (TIA), and cerebral infarction without residual deficits; Z87.728 Personal history of other specified (corrected) congenital malformations of nervous system and sense organs; R94.31 Abnormal electrocardiogram [ECG] [EKG]; Z79.899 Other long term (current) drug therapy
CPT/HCPCS: 36415; 70450; 80053; 81003; 82550; 84443; 84484; 85025; 85610; 85730; 87637; 93005; 96360; 99284; J7030

== ENCOUNTER 2025-03-08 14:05 | Emergency (ER) | payer OTHER, SELFPAY ==
--- NOTE | ~2025-03-08 | XR_ITS ---
HISTORY: R foot injury, HX STROKE RT SIDED PARTIALLY PARALYZED COMPARISON: None TECHNIQUE: 3 views of the right foot were performed FINDINGS: Limited evaluation secondary to the absence of visualization of the middle and distal phalanx the of the second through fourth toes No acute fracture or dislocation is appreciated within the visualized osseous structures. No significant degenerative disease is noted. The base of the fifth metatarsal is intact. No calcaneal spur is noted. No significant soft tissue swelling is present. IMPRESSION: As above. Reviewed, dictated and finalized at location A. IMPRESSION: As above.
--- OUTSIDE RECORDS SUMMARY | 2025-03-08 14:08 | XMS_ITS | Clinical Summary ---
Author Organization [facility] Devora Jackson nsion Address [address] [place] [address] [place] [address] Care Team Providers Care Chinese Language Professor Name Role Phone Ca Cavazos OT Unavailable [phone] Yin Kilpatrick NP Primary Care Provider [phone] Lucy Evans MD Unavailable Deangelo GREWAL MD, Ryan Maria Unavailable [phone] Debbie Smart MD Unavailable [phone] Allergies No known active allergies Medications multivitamin with folic acid 400 mcg tablet Take 1 tablet by mouth daily Active doxylamine (UNISOM) 25 mg tablet Take 1 tablet (25 mg total) by mouth nightly as needed for sleep Active amLODIPine (NORVASC) 2.5 mg tablet Take 1 tablet (2.5 mg total) by mouth daily 90 tablet 3 10/17/19 25 026 Active baclofen (LIORESAL) 10 mg tablet CONTINUE TAKING 10-10-20MG DAILY 120 tablet 5 10/25/19 25 Active lacosamide (VIMPAT) 200 mg tabletIndicati ons:Seizure-li ke activity (HCC),Seizure disorder (HCC) Take 1 tablet (200 mg total) by mouth 2 (two) times a day 180 tablet 1 12/16/[address] (CYMBALTA) 60 mg capsuleIndicat ions:Generaliz ed Anxiety Disorder,Neuro pathic Pain Take 1 capsule (60 mg total) by mouth daily 30 capsule 2 01/18/20 25 Active gabapentin (NEURONTIN) 100 mg capsule TAKE 1 TO 3 CAPSULES BY MOUTH NIGHTLY NEEDED 90 capsule 3 02/20/20 25 Active hydroxychloroq uine (PLAQUENIL) 200 mg tablet Take 1 tablet (200 mg total) by mouth daily 90 tablet 02/27/20 25 Active gabapentin (NEURONTIN) 100 mg capsule Take 1 capsule (100 mg total) by mouth nightly as needed (1-3 capsules nightly prn) 90 capsule 3 11/01/19 25 025 Discontinued hydroxychloroq uine (PLAQUENIL) 200 mg tablet Take 1 tablet (200 mg total) by mouth daily 90 tablet 01/12/20 25 025 Discontinued(Re order) Active Problems Problem Noted Date Diagnosed Date Anxiety state 01/08/2025 Other chronic pain 01/08/2025 Vitamin D deficiency 10/16/2024 Assessment & Plan (10/16/2024 12:46 PM CDT): Repeat levels pending. Continue vitamin-D supplement. Orders: Vitamin D 25 hydroxy; Future BMI 26.0-26.9,adult 10/16/2024 Assessment & Plan (10/16/2024 12:46 PM CDT): Follow a heart healthy diet with regular activity. History of cerebral parenchymal hemorrhage 10/16 Assessment & Plan (10/16/2024 12:46 PM CDT): Residual deficits including impaired executive functioning, right sided weakness, mild cognitive deficit, right foot drop, coordination deficit/spasticity , word searching. Follows with Neurology on a regular basis. We will continue following their recommendations. Continue with PT and OT as well. 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 Orders: Comprehensive metabolic panel; Future AVM (arteriovenous malformation) 02/12/2023 Assessment & Plan (10/16/2024 12:46 PM CDT): Rheumatoid arthritis 03/07/2020 Overview (10/22/2023): Prednisone use during discussed with MFM and no stress dose steroids needed at delivery at this time. RA flare-on prednisone taper for over 1 wk and now daily prednisone. Stress dose steroids discussed. Stopped Xeljanz with +UPT. Followed by rn progressive care, Dr. Anna. Assessment & Plan (10/16/2024 12:46 PM CDT): Orders: Ambulatory referral to Rheumatology; Future Resolved Problems Problem Noted Date Diagnosed Date Resolved Date Synovial cyst 10/22/2023 10/16/2024 Numbness 10/22/2023 10/16/2024 Pins and needles sensation 10/22/2023 0 10/16/2024 Cerebral hemorrhage 10/22/2023 10/17/19 25 Myopia 10/22/2023 10/16/2024 Vision abnormalities 04/23/[address] justice strength of right hand 04/23/2023 10/16/2024 Coordination abnormal 04/23/20232024 Right sided weakness 04/20/2023 025 Word finding difficulty 04/15/202309/24 Symbolic dysfunction 04/15/2023 025 Memory deficit 04/15/2023 10/16/2024 Cognitive communication deficit 04/15/2023 10/16/2024 Assessment & Plan (10/16/2024 12:28 PM CDT): Status post CVA secondary to cerebral hemorrhage. Residual impaired executive functioning, residual right sided weakness, abnormal coordination, Attention and concentration deficit 04/15/2023 10/16/2024 Other specified rheumatoid a rthritis, multiple sites 03/09/2023 10/16/2024 Thrombocytopenia 03/07/2023 10/16/2024 Intraparenchymal hemorrhage of brain 03/07/2023 10/16/2024 Hyponatremia 03/07/2023 10/16/2024 Hypokalemia 03/07/2023 10/16/2024 Elevated blood pressure affe cting in third trimester, antepartum 01/16/2023 Overview (10/22/2023): 01/23/23 Mild preeclampsia based on 24 hr urine of 446 mg protein. Previous delivery a ffecting 10/07/2022 10/16/2024 Overview (10/22/2023): Previous CS x 2-plan for RLTCS Umbilical hernia without obs truction and without gangrene 05/31/2020 10/16/2024 Rheumatoid arthritis without rheumatoid factor, multiple sites 08/22/2015 10/16/2024 Encounters Date Type Department Care Team Description 01/24/2025 9:00 AM CDT Therapy [facility] Occupational Therapy [address] [place] [id number] Ca Cavazos OT Cognitive changes (Primary Dx) 01/19/2025 1:50 PM CDT - 01/19/2025 11:59 PM CDT Hospital Encounter [facility] [address] [place] [address] Brooklyn Dumont [place] Discharge Disposition: Discharge to home or self care 01/18/2025 12:18 PM CDT - 01/18/2025 11:59 PM CDT Hospital Encounter [facility] [address] [place] [address] Jorge Berumen Seizure disorder (HCC) Discharge Disposition: Discharge to home or self care 01/10/2025 Telephone [facility] [address] [place] [address] Herminia Morales 01/08/2025 9:45 AM CDT Office Visit [facility] Orthopaedic Surgery [address] [facility] [address]th [address] [place] [phone] Debbie Smart MD Spasticity as late effect of cerebrovascular accident (CVA) (Primary Dx); Equinovarus deformity, acquired, right; Anxiety state; Other chronic pain 12/14/2024 Telephone [facility] Epilepsy [address] [facility] 6th [address] [place] [phone] Ryan Bright III, MD Seizures from Last 3 Months Immunizations Immunization Administration Dates Next Due Influenza LAIV (Nasal) 05/01/2013 Influenza, Trivalent, Preservative Free, Intramu scular 07/03/2016,06/04/2015 Tdap 08/16/2015,07/26/2015 Surgical History Surgery Date Site/Laterality Comments CARPAL TUNNEL RELEASE 07/26/2010 - 07/25/2011 Bilateral SECTION 2012, 2014, 2022 HERNIA REPAIR 07/26/2020 - 07/25/2021 Diastasis hernia repair CARDIAC SURGERY 07/26/1991 - 07/25/1992 BRAIN SURGERY 07/26/2022 - 07/25/2023 x3 Medical History Medical History Date Comments Rheumatoid arthritis (HCC) Pre-eclampsia Intraparenchymal hemorrhage of brain (HCC) Stroke (HCC) History of chicken pox Attention and concentration deficit 04/15/2023 Hypokalemia 03/07/2023 Hyponatremia 03/07/2023 Previous delivery a ffecting 10/07/2022 Formatting of this note migh t be different from the original. Previous CS x 2-plan for RLTCS Family History Medical History Relation Name Comments Hypertension Brother Hypertension Father Brain cancer Maternal Grandfather Hypertension Maternal Grandmother Transient ischemic attack Mother Prostate cancer Paternal Grandfather Relation Name Status Comments Brother Father Alive Maternal Grandfather Maternal Grandmother Mother Alive Paternal Grandfather Social History Tobacco Use Types Packs/Day Years Used Date Smoking Tobacco: Never Passive Smoke Exposure: Never Smokeless Tobacco: Never Tobacco Cessation:Counseling Given: No AUDIT-C Answer Date Recorded Q1: How often do you have a drink containing alc ohol? Monthly or less 10/16/2024 Q2: How many drinks containi ng alcohol do you have on a typical day when you are drinking? 1 or 2 10/16/2024 Q3: How often do you have si x or more drinks on one occasion? Never 10/16/2024 PHQ-2 Answer Date Recorded PHQ-2 Total Score (If total score is 3 or more points, staff should administer the PHQ-9) 0 10/16/2024 Comments No Sex and Gender Information Value Date Recorded Sex Assigned at Not on file Legal Sex Female 9:18 AM AD[employer]OC[employer] DIRECTOR Gender Identity Not on file Sexual Orientation Not on file Obstetrics History Last Filed Vital Signs Vital Sign Reading Time Taken Comments Blood Pressure 146/95 01/08/2025 9:35 AM CDT Pulse 83 01/08/2025 9:35 AM CDT Temperature 36.7 C (98 F) 10/16/2024 11:26 AM CDT Respiratory Rate 18 01/08/2025 9:35 AM CDT Oxygen Saturation 98% 10/16/2024 11: 26 AM CDT Inhaled Oxygen Concentration - - Weight 67.5 kg (148 lb 12.8 oz) 01/08/2025 9:35 AM CDT Height 162.6 cm (5' 4) 01/08/2025 9:35 AM CDT Body Mass Index 25.54 01/08/2025 9:35 AM CDT Plan of Treatment Health Maintenance Due Date Last Done Comments Hepatitis C Screening 1990 Hepatitis B Screening 02/22/2008 Pneumococcal vaccine <65 (1 of 2 - PCV) 2009 Zoster Vaccine (1 of 2) 2009 HPV Vaccines (1 - 3-dose SCDM series) 2017 Influenza Vaccine (#1) 2025 6, 06/04/2015, 05/01/2013 DTaP/Tdap/Td Vaccine (3 - Td or Tdap) 08/16/2025, 07/26/2015 Depression Screening 10/16/2025 10/16/2024 Regular Well Visit/Exam 18-64 10/16/2025 10/16/2024 Cervical Cancer Screening 04/21/2028 04/21/2023 Procedures Procedure Name Priority Date/Time Associated Diagnosis Comments AMBULATORY EEG Routine 01/21/2025 7:25 PM CDT Seizure disorder (HCC) BOTOX INJECTION Routine 01/08/2025 9:45 AM CDT Spasticity as late effect of cerebrovascular accident (CVA) from Last 3 Months Results * Ambulatory EEG -[facility] (01/21/2025 7:25 PM CDT) Anatomical Region Laterality Modality EEG Narrative 01/21/2025 7:25 PM CDT Ambulatory EEG Report Patient Name: Yuli Mckeon [facility] Medical Record Number (MRN): [id number] [facility] Record: No [facility] MRN Date of (): 1990 EEG Date: 01/18/2025 Ordering Provider: Ryan Bright III, MD CC: Yin Kilpatrick Start Time: 01/18/2025 1:54:12 PM End Time: 01/19/2025 2:06:48 PM Introduction: Ms. Mckeon is a 34 y.o. female with a history of AVM, left frontoparietal intracerebral hemorrhage, with associated intraventricular hemorrhage, presenting with episodes of weird feeling, anxiety, and movement of the right upper extremity concerning for seizure activity. The EEG was performed to evaluate for seizures. This is a 24 channel EEG recording acquired on a Domob digital ambulatory EEG acquisition system. Scalp electrodes were placed with collodion according to the international 10-20 System. The analog EEG was filtered from 1-70 Hz and digitally sampled at 200 Hz. The record was then reformatted for review in bipolar and referential montages. A patient diary and push-button event system was utilized to record patient events as needed. EEG Description: The awake background was continuous and included a 9 Hz PDR. There was excessive faster frequencies activity in the background. There was rare focal irregular 3-6 Hz slowing over the left (anterior) temporal region (predominantly at F7, T3). During drowsiness/stage 1 sleep, identified by ocular signs and alpha attenuation, there was intermittent, diffuse, asynchronous theta activity admixed with 2-4 Hz polymorphic frontotemporal delta activity. There were rare wickets and short runs of RMTD in the left temporal region. As the record progressed, stage II sleep was identified by sleep spindles and K-complexes. Hyperventilation and photic strobe stimulation were not performed. There were no definite epileptiform discharges, there were no seizures. There were no events reported / marked by the patient. Interpretation: This is an abnormal ambulatory EEG due to rare focal irregular delta-theta slowing in the left (anterior) temporal region. There were no definite epileptiform discharges; there were no seizures. There were no events reported / marked by the patient. By signing this report, the attending Electroencephalographer certifies that he/she personally reviewed the electrodiagnostics study and has edited this report to fully conform with his/her intent. Signing Attending: Guerda Jean-Baptiste MD Ryan Bright III, MD NEUROLOGY ORDERABLES [facility] al Result * Botox Injection (01/08/2025 9:45 AM CDT) Narrative Debbie Smart MD - 01/08/2025 9:45 AM CDT Debbie Smart MD 01/15/2025 4:05 PM Botox Injection Performed by: Debbie Smart MD Authorized by: Debibe Smart MD [place] Protocol: Consent Given by: Patient Site marked: the procedure site was marked Timeout: prior to procedure the correct patient, procedure, and site was verified Procedure Details - Botox Injection: Procedure Details: Buy and Bill Botox 1,000 Units abobotulinumtoxinA (DYSPORT) injection 500 units Debbie Smart MD IN CLINIC/BEDSIDE ORDERABLE S Edited Result - Final from Last 3 Months Insurance [facility] CLAIMS [facility] CLAIMS Care Teams Chinese Language Professor Relationship Specialty Start Date End Date Yin Kilpatrick NP PCP - General Family Practice 10/16/24 Ca Cavazos OT Occupational Therapist Occupational Therapy 05/10/24 Lucy Evans MD [address] [address] Consulting Physician Neurology 10/16/24 Ryan Bright III, MD [address] [facility] NEUROLOGY EPILEPSY, [address] [address] Referring Physician Neurology 10/16/24 Debbie Smart MD [address] [facility] [address] [place] [address] Consulting Physician Physical Medicine and Rehabilitation 10/16/24
--- OUTSIDE RECORDS SUMMARY | 2025-03-08 14:08 | XMS_ITS | Patient Health Record ---
Author Organization [facility] Address [address] [place] [address] Care Team Providers Care Tile Trimmer Name Role Phone [facility] [address] [facility] [address] Provi valeri Unavailable Gaurav Anna DO Unavailable [phone] Allergies No Known Allergies Reason For Referral No Information Medications Medication SIG (Take, Route, Frequency, Duration) Notes Start Date End Date Status Acetaminophen 325 MG 1 tablet as needed Orally every 4 hrs Active predniSONE 5 MG 1 tablet Orally Once a day as needed for RA 04/02/2023 Active Labetalol HCl 100 MG 1 tablet Orally Twi ce a day Active levETIRAcetam 1000 MG 1 tablet on the to ngue and allow to dissolve Orally Twice a day Active Hydroxychloroquine Sulfate 2 00 MG 2 tabs daily with food or milk Orally Active Baclofen 10 MG 1 tablet as needed Orally Twice a day Active diazePAM 10 MG 1 tablet as needed Orally Once a day Active Folic Acid 1 MG 1 tablet Orally Once a day Active Social History Tobacco Use: Social History Observation Description Date Details (start date - stop date) Never Smoker NA - NA Tobacco Use/Smoking Question Answer Notes Are you a nonsmoker Alcohol Screen Question Answer Notes Did you have a drink contain ing alcohol in the past year? Yes How often did you have a dri nk containing alcohol in the past year? Monthly or less (1 point) How many drinks did you have on a typical day when you were drinking in the past year? 1 or 2 drinks (0 point) How often did you have 6 or more drinks on one occasion in the past year? Never (0 point) Points 1 Interpretation Negative Problems Problem Type SNOMED Code ICD Code Onset Dates Problem Status W/U Status Risk Notes Problem Rheumatoid arthritis (48244820) RA without rheumatoid factor, multi sites (M06.09) Active confirmed Problem Rheumatoid arthritis (74552239) RA, unspecified (M06.9) Active confirmed Problem Long-term current use of systemic steroid ([id number] 3) retirement (current) use of systemic steroids (Z79.52) Active confirmed Plan Of Treatment No Information Insurance Providers Payer Name Payer Address Payer Phone Subscriber Number Group Number Insured Name Patient Relationship to Insured Coverage Start Date Coverage End Date [employer] [address] [place] [phone] [id number] Yuli Mckeon Self - patient is the insured Medical (General) History Medical History History ICD Code RA, 2012 Carpel tunnel sx, s/p bilat release (201 2) Stroke, 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
[2025-03-08 14:20] VITALS: BP 121/85; PULSE 74; RESP 20; TEMP 36.8; O2SAT 100
--- NOTE | 2025-03-08 14:25 | ED.LOWEXIN ---
HPI - Extremity Injury (Lower) General Chief Complaint: Extremity Injury, Lower <Deneen uQick APRN - Last Filed: 03/08/25 14:28> Stated Complaint: R. foot injury <Deneen Quick APRN - Last Filed: 03/08/25 14:28> Time Seen by Provider: 03/08/25 18:31 <Deneen Quick APRN - Last Filed: 03/08/25 14:28> Focused HPI: Patient is a 35-year-old female who presents to the ER with right foot pain. She reports this morning she tripped over her right foot and crushed it by turning it. Patient endorses a history of a hemorrhagic stroke 2 years ago. She has a residual right lower extremity weakness from that stroke. Patient endorses a history of seizures. She denies any right pain, recent fevers, or recent seizure activity. GENERAL: Well-appearing, well-nourished, and in no acute distress. HEAD: Normocephalic, atraumatic. CHEST: Clear to auscultation. ?No respiratory distress. HEART: Regular rate and rhythm.? NEURO: ?Alert and oriented x3. Patient screened in triage and initial orders placed.? ?Additional care and disposition to be based upon?diagnostic testing and treatment. <Deneen Quick APRN - Last Filed: 03/08/25 14:28> Related Data Home Medications: Home Medications ?Medication ?Instructions ?Recorded ?Confirmed ?Last Taken ?Type hydroxychloroquine 100 mg tablet 100 mg PO BID 08/17/23 09/18/23 Unknown History labetalol 100 mg tablet 50 mg PO Q12H 08/17/23 09/18/23 Unknown History <Deneen Quick APRN - Last Filed: 03/08/25 14:28> Allergies/Adverse Reactions: Allergies Allergy/AdvReac Type Severity Reaction Status Date / Time No Known Allergies Allergy Verified 03/08/25 14:23 <Deneen Quick APRN - Last Filed: 03/08/25 14:28> Review of Systems Review of Systems: All systems reviewed & are unremarkable except as noted in HPI and below <Dianelys Muller PA-C - Last Filed: 03/08/25 18:38> PMFSH Past Medical History Medical History: Medical History History of stroke Status post stereotactic radiosurgery (~06/2023) <Deneen Quick APRN - Last Filed: 03/08/25 14:28> Surgical History Surgical History: Surgical History S/P coil embolization of cerebral aneurysm (~2022) H/O hernia repair (~2020) H/O carpal tunnel repair (~2010) x2 H/O atrial septal defect repair (~1991) <Deneen Quick APRN - Last Filed: 03/08/25 14:28> Family History Family History: Family History Father Hypertension <Deneen Quick APRN - Last Filed: 03/08/25 14:28> Social History Social History: Social History Social History: Caffeine-Coffee Smoking status: Never smoker Alcohol intake: never Substance use: never Substance use type: does not use Lack of Transportation: No Lack of Food: Never True Current Housing: I Have Housing Concerned About Future Housing: No Difficulty Paying Gas/Electric Bills: No Difficulty Paying for Meds: No Currently Unemployed: No Education: Bachelor's Degree Difficulty w/ Childcare or Family Care: No Living arrangements: with family Gender identity (if verbalized by the patient): Female Agree to blood products: Yes <Deneen Quick, MECHANICAL TECHNICAL SERVICE SPECIALIST - Last Filed: 03/08/25 14:28> Exam Narrative: GENERAL: Well-appearing, well-nourished, and in no acute distress. HEAD: Normocephalic, atraumatic. EYES: EOMI. EXTREMITIES: Normal range of motion. Mild edema and bruising about the right lateral malleoli. Normal DP pulse. Normal sensation SKIN: Warm, dry, no rash. NEURO: No focal deficits. Alert and oriented x3. PSYCH: Normal mood and affect <LISET Fritz Last Filed: 03/08/25 18:38> Course Vital Signs Vital signs: Vital Signs Temperature 98.3 F 03/08/25 14:20 Pulse Rate 74 03/08/25 14:20 Respiratory Rate 20 03/08/25 14:20 Blood Pressure 121/85 03/08/25 14:20 Pulse Oximetry 100 03/08/25 14:20 Oxygen Delivery Room Air 03/08/25 14:20 Temperature 98.3 F 03/08/25 14:20 Pulse Rate 74 03/08/25 14:20 Respiratory Rate 20 03/08/25 14:20 Blood Pressure 121/85 03/08/25 14:20 Pulse Oximetry 100 03/08/25 14:20 Oxygen Delivery Room Air 03/08/25 14:20 <Deneen Quick APRN - Last Filed: 03/08/25 14:28> Vital Signs Temperature 98.3 F 03/08/25 14:20 Pulse Rate 74 03/08/25 14:20 Respiratory Rate 20 03/08/25 14:20 Blood Pressure 121/85 03/08/25 14:20 Pulse Oximetry 100 03/08/25 14:20 Oxygen Delivery Room Air 03/08/25 14:20 Temperature 98.3 F 03/08/25 14:20 Pulse Rate 74 03/08/25 14:20 Respiratory Rate 20 03/08/25 14:20 Blood Pressure 121/85 03/08/25 14:20 Pulse Oximetry 100 03/08/25 14:20 Oxygen Delivery Room Air 03/08/25 14:20 <LISET Fritz Last Filed: 03/08/25 18:38> MDM - Extremity Injury (Lower) MDM Narrative Medical decision making narrative: Patient presents the emergency department for right foot injury sustained this morning. She is neurovascularly intact. Right foot x-ray without acute osseous abnormalities. Patient placed in Angel Luis wrap, instructed on further care of foot sprain. She is to follow up with primary provider. She was given warnings to return to the ER <LISET Fritz Last Filed: 03/08/25 18:38> Differential Diagnosis Differential diagnosis: Likely other (Foot fracture, foot sprain) <LISET Fritz Last Filed: 03/08/25 18:38> Imaging Data Radiologist's impression: ITS Impressions Foot X-Ray 03/08/25 14:51 IMPRESSION: As above. <Dianelys Muller PA-C - Last Filed: 03/08/25 18:38> Critical Care Time Critical Care Time Critical Care Time: No <Dianelys Muller PA-C - Last Filed: 03/08/25 18:38> Discharge Plan Discharge Clinical Impression: Right foot sprain Qualifiers: Encounter type: initial encounter Qualified Code(s): S93.601A - Unspecified sprain of right foot, initial encounter <Deneen Quick APRN - Last Filed: 03/08/25 14:28> Patient Disposition: Home <Deneen Quick APRN - Last Filed: 03/08/25 14:28> Condition: Stable <Deneen Quick APRN - Last Filed: 03/08/25 14:28> Instructions: Ankle Sprain (ED) <Deneen Quick APRN - Last Filed: 03/08/25 14:28> Additional Instructions: Return to the ER if you experience fever, redness and swelling of your extremity, numbness or any other symptoms that are concerning to you Wear ANGEL LUIS wrap and use your cane. No weight on the affected leg until able to bear weight without pain. Ice and elevate extremity. Tylenol of Ibuprofen as needed for pain Follow up with your doctor for further care. <Deneen Quick APRN - Last Filed: 03/08/25 14:28> Patient Language: Dutch <Deneen Quick APRN - Last Filed: 03/08/25 14:28> Prescriptions: No Action doxycycline hyclate 100 mg capsule 100 mg PO BID 7 Days Qty: 14 0RF hydroxychloroquine 100 mg tablet 100 mg PO BID labetalol 100 mg tablet 50 mg PO Q12H lacosamide 100 mg tablet 100 mg PO Q12H Qty: 30 0RF clonazepam [Klonopin] 0.5 mg tablet 0.25 mg PO BID Qty: 6 0RF Rx Instructions: administer 30 minutes before bedtime folic acid 1 mg tablet 1 mg PO DAILY Qty: 90 2RF baclofen 5 mg tablet 5 mg PO DIRECTED Qty: 450 0RF Rx Instructions: 1 in AM, 4 in PM <Deneen Quick APRN - Last Filed: 03/08/25 14:28> Follow-up/Referrals: Finesse,Yin Fernandez APRN [Primary Care Provider] - <Deneen Quick APRN - Last Filed: 03/08/25 14:28>
== END 2025-03-08 19:48 | disposition home or self-care (01) ==
PROVIDERS: Emergency Provider Physician Assistant; PCP Nurse Practitioner
DX: S93.601A Unspecified sprain of right foot, initial encounter (principal); I69.341 Monoplegia of lower limb following cerebral infarction affecting right dominant side; X50.9XXA Other and unspecified overexertion or strenuous movements or postures, initial encounter; W18.49XA Other slipping, tripping and stumbling without falling, initial encounter
CPT/HCPCS: 73630; 99283